=== PATIENT | male | born 1960 | race Caucasian/White ===

== ENCOUNTER 2017-07-05 09:19 | Inpatient (IN) | payer OTHER ==
--- NOTE | 2017-07-05 12:06 | HP ---
CIWA Score - CIWA Score Nausea/Vomitin Muscle Tremors: 3 Anxiety: 3 Agitation: 3 Paroxysmal Sweats: 1-Minimal Palms Moist Orientation: 0-Oriented Tacttile Disturbances: 2-Mild Itch/Numbness/Burn Auditory Disturbances: 0-None Visual Disturbances: 0-None Headache: 0-None Present CIWA-Ar Total Score: 15 Admission ROS S - HPI Chief Complaint: "I want detox from Alcohol" Allergies/Adverse Reactions: Allergies Allergy/AdvReac Type Severity Reaction Status Date / Time No Known Allergies Allergy Verified 07/05/17 09:55 History of Present Illness: 57 y/o male with a protracted hx of alcohol abuse presents requesting detox. This is pt's first visit to [facility] but had detox at [facility] in 2014. Hx of HTN, DM, High cholesterol, GERD. Pt was at [facility] ED last night for intoxication from where he was brought here today by Adri. Denies prior or current SI/HI. Exam Limitations: Clinical Condition, Intoxication (appears intoxicated, A & O x 3 and had steady gait) - Ebola screening Have you traveled outside of the country in the last 21 days: No (N) Have you had contact with anyone from an Ebola affected area: No Have you been sick,other than usual withdrawal symptoms: No Do you have a fever: No - Review of Systems EENT: reports: Blurred Vision ("i need glasses") Respiratory: reports: No Symptoms reported Cardiac: reports: No Symptoms Reported GI: reports: Poor Appetite : reports: Other (Erectile dysfunction) Musculoskeletal: reports: No Symptoms Reported Neuro: reports: No Symptoms reported Endocrine: reports: Intolerance to Heat, Unexplained Weight Loss Hematology: reports: Easy Bruising (Gums) Psychiatric: reports: Orientated x3 Other Systems: Reviewed and Negative Patient History - Patient Medical History Hx Anemia: Yes Hx Asthma: No Hx Chronic Obstructive Pulmonary Disease (COPD): No Hx Cancer: No Hx Cardiac Disorders: No Hx Congestive Heart Failure: No Hx Hypertension: Yes (On Norvasc 15mg daily) Hx Hypercholesterolemia: Yes (Simvastatin 5mg at night) Hx Pacemaker: No HX Cerebrovascular Accident: No Hx Seizures: No Hx Dementia: No Hx Diabetes: Yes (On Metformin 500mg daily) Hx Gastrointestinal Disorders: Yes (GERD, On protonix) Hx Liver Disease: No Hx Genitourinary Disorders: No Hx Sexually Transmitted Disorders: No Hx Renal Disease (ESRD): No Hx Thyroid Disease: No Hx Human Immunodeficiency Virus (HIV): No (Last tested 4 years ago) Hx Hepatitis C: No Hx Depression: No Hx Suicide Attempt: No (Denies Current SI) Hx Bipolar Disorder: No Hx Schizophrenia: No - Patient Surgical History Past Surgical History: No Hx Neurologic Surgery: No Hx Cataract Extraction: No Hx Cardiac Surgery: No Hx Lung Surgery: No Hx Breast Surgery: No Hx Breast Biopsy: No Hx Abdominal Surgery: No Hx Appendectomy: No Hx Cholecystectomy: No Hx Genitourinary Surgery: No Hx Section: No Hx Orthopedic Surgery: No Other Surgical History: Oral surgery Anesthesia Reaction: No - PPD History Previous Implant?: Yes Documented Results: Negative w/o proof Implanted On Prior [facility] Admission?: No PPD to be Administered?: Yes - Reproductive History Patient is a Female of Child Bearing Age (11 -55 yrs old): No - Smoking Cessation Smoking history: Never smoked Have you smoked in the past 12 months: No Hx Chewing Tobacco Use: No Initiated information on smoking cessation: No - Substance & Tx. History Hx Alcohol Use: Yes Substance Use Type: Alcohol - Substances Abused Alcohol Route: Oral Frequency: Daily Amount used: liquor- 1 pint, beer- 2, 24oz Age of first use: 12 Date of Last Use: 07/04/17 Family Disease History - Family Disease History Family Disease History: Other: Father (Cardiac;), Mother (Psych hx; Alive), Brother (Seizure ; Alive) Admission Physical Exam BHS - Vital Signs Vital Signs: Vital Signs - 24 hr 07/05/17 09:41 Temperature 220 F H Pulse Rate 82 Respiratory 20 Rate Blood Pressure 152/84 - Physical General Appearance: Yes: Moderate Distress HEENTM: Yes: Within Normal Limits Respiratory: Yes: No Respiratory Distress, No Accessory Muscle Use Neck: Yes: No masses,lesions,Nodules, Trachea in good position Breast: Yes: Breast Exam Deferred Cardiology: Yes: Regular Rate Abdominal: Yes: Non Tender, Distended Back: Yes: Normal Inspection Musculoskeletal: Yes: full range of Motion, Gait Steady Extremities: Yes: Within Normal Limits Neurological: Yes: Alert, Motor Strength 5/5 Integumentary: Yes: Normal Color Lymphatic: Yes: Within Normal Limits - Diagnostic (1) Alcohol dependence with uncomplicated intoxication Current Visit: Yes Status: Acute (2) HTN (hypertension) Current Visit: Yes Status: Chronic (3) Hypercholesteremia Current Visit: Yes Status: Chronic (4) Substance induced mood disorder Current Visit: Yes Status: Suspected (5) DM type 2 (diabetes mellitus, type 2) Current Visit: Yes Status: Suspected Cleared for Admission [facility] - Detox or Rehab [facility] Level of Care: Medically Managed Detox Regimen/Protocol: Librium S Breath Alcohol Content Breath Alcohol Content: 0.134 Urine Drug Screen - Results Drug Screen Negative: Yes
[2017-07-05] MEDS ORDERED: IBUPROFEN 400 MG TABLET (FP) PO PRN (12:43)
[2017-07-05] MEDS ORDERED: hydrOXYzine PAMOATE 50 MG CAPSULE (FP) PO PRN (12:43)
[2017-07-05] MEDS ORDERED: MAGNESIUM CITRATE 300 ML BOTTLE PO PRN (12:43)
[2017-07-05] MEDS ORDERED: P-EPHED 60MG/TRIPROLIDI 2.5MG TABLET PO PRN (12:43)
[2017-07-05] MEDS ORDERED: ACETAMINOPHEN 325 MG TABLET (FP) PO PRN (12:43)
[2017-07-05] MEDS ORDERED: MENTHOL/PHENOL 1 EACH UD MM PRN (12:43)
[2017-07-05] MEDS ORDERED: MAGNESIUM HYDROX 2400MG/30ML ORAL SUSPENSION 30 ML CUP PO PRN (12:43)
[2017-07-05] MEDS ORDERED: guaiFENesin/D-METHORPHAN HB 10 ML UNIT-DOSE CUPS PO PRN (12:43)
[2017-07-05] MEDS ORDERED: chlordiazePOXIDE HCL 25 MG CAPSULE PO PRN (12:43)
[2017-07-05] MEDS ORDERED: MAG HYDROX/AL HYDROX/SIMETH 30 ML UNIT-DOSE CUP PO PRN (12:43)
[2017-07-05] MEDS ORDERED: LOPERAMIDE HCL 2 MG CAPSULE PO PRN (12:43)
[2017-07-05] MEDS ORDERED: amLODIPine BESYLATE 10 MG TABLET (FP) PO SCH ×2 (13:00→14:40)
[2017-07-05] MEDS: PANTOPRAZOLE 40 MG TABLET (FP) PO SCH (14:27)
[2017-07-05] MEDS: chlordiazePOXIDE HCL 25 MG CAPSULE PO SCH ×3 (14:28→22:05)
--- NOTE | 2017-07-05 14:34 | EKG ---
Test Reason : Blood Pressure : / mmHG Vent. Rate : 088 BPM Atrial Rate : 088 BPM P-R Int : 168 ms QRS Dur : 112 ms QT Int : 370 ms P-R-T Axes : 059 070 066 degrees QTc Int : 447 ms NORMAL SINUS RHYTHM POSSIBLE LEFT ATRIAL ENLARGEMENT BORDERLINE ECG NO PREVIOUS ECGS AVAILABLE Confirmed by MD Yonatan, Jim ([id number]) on 07/05/2017 2:34:18 PM Referred By: Confirmed By:Jim Tam MD
[2017-07-05] MEDS ORDERED: amLODIPine BESYLATE 5 MG TABLET (FP) PO ONE (14:47)
[2017-07-05 15:05] VITALS: BMI 37.8
[2017-07-05 21:11] LABS: URINE APPEARANCE CLEAR; URINE BILIRUBIN NEGATIVE (<2.0 mg/dL); URINE COLOR YELLOW; URINE GLUCOSE (UA) NEGATIVE (NEGATIVE); URINE KETONE NEGATIVE (NEGATIVE); URINE LEUK ESTERASE NEGATIVE (NEGATIVE); URINE NITRITE NEGATIVE (NEGATIVE); URINE PROTEIN NEGATIVE (NEGATIVE); URINE UROBILINOGEN NEGATIVE mg/dL (0.2-1.0)
[2017-07-05] MEDS ORDERED: MELATONIN 5 MG TABLETS PO PRN (22:00)
[2017-07-05] MEDS: THIAMINE HCL 100 MG TABLET (FP) PO SCH (22:05)
[2017-07-05] MEDS: ATORVASTATIN CA 10 MG TABLET (FP) PO SCH (22:06)
[2017-07-06] MEDS: chlordiazePOXIDE HCL 25 MG CAPSULE PO SCH ×4 (05:41→22:06)
[2017-07-06] MEDS: metFORMIN HCL 500 MG TABLET (FP) PO SCH (06:12)
[2017-07-06 09:43] LABS: HEMATOCRIT 39.6 % (35.4-49); HEMOGLOBIN 13.8 GM/dL (11.7-16.9); MCH 35.6 pg (25.7-33.7); MCHC 34.8 g/dl (32.0-35.9); MEAN CELL VOLUME 102.3 fl (80-96); MEAN PLT VOLUME 9.5 fl (7.5-11.1); PLATELET COUNT 134 K/MM3 (134-434); RBC 3.87 M/mm3 (4.00-5.60); RDW 14.9 % (11.9-15.9); WHITE BLOOD COUNT 6.8 K/mm3 (4.0-10.0)
[2017-07-06 09:52] LABS: CHLORIDE 101 mmol/L (98-107); POTASSIUM 3.7 mmol/L (3.5-5.1); SODIUM 136 mmol/L (136-145)
[2017-07-06] MEDS ORDERED: amLODIPine BESYLATE 10 MG TABLET (FP) PO SCH (10:00)
[2017-07-06 10:02] LABS: ALBUMIN 3.6 g/dl (3.4-5.0); ALK PHOS 103 U/L (45-117); ANION GAP 4 (8-16); BILIRUBIN,TOTAL 2.2 mg/dL (0.2-1.0); BLOOD UREA NITROGEN 10 mg/dL (7-18); CALCIUM 8.3 mg/dL (8.5-10.1); CO2 31 mmol/L (21-32); CREATININE 0.8 mg/dL (0.7-1.3); GLUCOSE,RANDOM 91 mg/dL (74-106); SGOT/AST 37 U/L (15-37); SGPT/ALT 28 U/L (12-78)
[2017-07-06] MEDS: PRENATAL VITAMINS W/ FOLIC ACID TABLET (FP) PO SCH (10:09)
[2017-07-06] MEDS: PANTOPRAZOLE 40 MG TABLET (FP) PO SCH (10:09)
--- NOTE | 2017-07-06 11:27 | PN ---
S CIWA - CIWA Score Nausea/Vomitin-Mild Nausea/No Vomiting Muscle Tremors: 4-Moderate,w/Arms Extend Anxiety: 3 Agitation: 3 Paroxysmal Sweats: 1-Minimal Palms Moist Orientation: 0-Oriented Tacttile Disturbances: 1-Very Mild Itch/Numbness Auditory Disturbances: 0-None Visual Disturbances: 0-None Headache: 0-None Present CIWA-Ar Total Score: 13 BHS Progress Note (SOAP) Subjective: tremor sweat anxiety restlessness trouble sleep at night Objective: 07/06/17 11:28 Vital Signs Temperature 99.7 F H 07/06/17 10:18 Pulse Rate 91 H 07/06/17 10:18 Respiratory Rate 18 07/06/17 10:18 Blood Pressure 123/75 07/06/17 10:18 O2 Sat by Pulse Oximetry (%) Laboratory Last Values WBC 6.8 K/mm3 (4.0-10.0) 07/06/17 07:00 RBC 3.87 M/mm3 (4.00-5.60) L 07/06/17 07:00 Hgb 13.8 GM/dL (11.7-16.9) 07/06/17 07:00 Hct 39.6 % (35.4-49) 07/06/17 07:00 MCV 102.3 fl (80-96) H 07/06/17 07:00 MCH 35.6 pg (25.7-33.7) H 07/06/17 07:00 MCHC 34.8 g/dl (32.0-35.9) 07/06/17 07:00 RDW 14.9 % (11.9-15.9) 07/06/17 07:00 Plt Count 134 K/MM3 (134-434) 07/06/17 07:00 MPV 9.5 fl (7.5-11.1) 07/06/17 07:00 Sodium 136 mmol/L (136-145) 07/06/17 07:00 Potassium 3.7 mmol/L (3.5-5.1) 07/06/17 07:00 Chloride 101 mmol/L (98-107) 07/06/17 07:00 Carbon Dioxide 31 mmol/L (21-32) 07/06/17 07:00 Anion Gap 4 (8-16) L 07/06/17 07:00 BUN 10 mg/dL (7-18) 07/06/17 07:00 Creatinine 0.8 mg/dL (0.7-1.3) 07/06/17 07:00 Creat Clearance w eGFR > 60 (>60) 07/06/17 07:00 POC Glucometer 98 UNITS (80-120) 07/06/17 05:41 Random Glucose 91 mg/dL (74-106) 07/06/17 07:00 Calcium 8.3 mg/dL (8.5-10.1) L 07/06/17 07:00 Total Bilirubin 2.2 mg/dL (0.2-1.0) H 07/06/17 07:00 AST 37 U/L (15-37) 07/06/17 07:00 ALT 28 U/L (12-78) 07/06/17 07:00 Alkaline Phosphatase 103 U/L (45-117) 07/06/17 07:00 Total Protein 8.0 g/dl (6.4-8.2) 07/06/17 07:00 Albumin 3.6 g/dl (3.4-5.0) 07/06/17 07:00 Urine Color Yellow 07/05/17 18:37 Urine Appearance Clear 07/05/17 18:37 Urine pH 5.0 (5.0-8.0) 07/05/17 18:37 Ur Specific [place] 1.015 (1.001-1.035) 07/05/17 18:37 Urine Protein Negative (NEGATIVE) 07/05/17 18:37 Urine Glucose (UA) Negative (NEGATIVE) 07/05/17 18:37 Urine Ketones Negative (NEGATIVE) 07/05/17 18:37 Urine Blood Negative (NEGATIVE) 07/05/17 18:37 Urine Nitrite Negative (NEGATIVE) 07/05/17 18:37 Urine Bilirubin Negative (<2.0 mg/dL) 07/05/17 18:37 Urine Urobilinogen Negative mg/dL (0.2-1.0) 07/05/17 18:37 Ur Leukocyte Esterase Negative (NEGATIVE) 07/05/17 18:37 RPR Titer Nonreactive (NONREACTIVE) 07/06/17 07:00 HIV 1&2 Antibody Screen Negative 07/06/17 07:00 HIV P24 Antigen Negative 07/06/17 07:00 lab noted Assessment: 07/06/17 11:28 withdrawal sx Plan: continue detox
--- NOTE | 2017-07-06 13:44 | CONSULT ---
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 Substance Abuse History: Confirmed by patient in this interview.Details in current [facility] report : Smoking history: Never smoked. Have you smoked in the past 12 months: No. Hx Chewing Tobacco Use: No. Initiated information on smoking cessation: No. - Substance & Tx. History. Hx Alcohol Use: Yes. Substance Use Type: Alcohol. - Substances Abused. Alcohol. Route: Oral. Frequency: Daily. Amount used: liquor- 1 pint, beer- 2, 24oz. Age of first use : 12. Date of Last Use: 07/04/17 Medical History: GERD,dyslipidemia,erectile dysfunction (ED),hypertension, diabetes mellitus and history of cardiac stent placement (self-report). Psychiatric History: Patient denies. Physical/Sexual Abuse/Trauma History: Patient denies. Additional Comment: Drug Screen is negative. Mental Status Exam - Mental Status Exam Alert and Oriented to: Time, Place, Person Cognitive Function: Good Patient Appearance: Well Groomed (but unshaven ; short stature,overweight) Mood: Hopeful, Euthymic Affect: Appropriate, Normal Range Patient Behavior: Appropriate, Cooperative Speech Pattern: Clear, Appropriate (fluent in burundian) Voice Loudness: Normal Thought Process: Intact, Goal Oriented Thought Disorder: Not Present Hallucinations: Denies Suicidal Ideation: Denies Homicidal Ideation: Denies Insight/Judgement: Fair Sleep: Poorly, Difficulty falling asleep Appetite: Good Muscle strength/Tone: Normal Gait/Station: Normal Psychiatric Findings - Problem List ([place] 1, 2,3) (1) Alcohol dependence with uncomplicated intoxication Current Visit: Yes Status: Acute (2) Nicotine dependence Current Visit: Yes Status: Acute (3) Insomnia Current Visit: Yes Status: Acute - Initial Treatment Plan Initial Treatment Plan: Psychoeducation.Sleep hygiene.Detoxification in progress.Ambien 5 mg po hs prn (patient's request).Patient is made aware of risk of parasomnias.Agrees with careplan.Observation.
[2017-07-06] MEDS: THIAMINE HCL 100 MG TABLET (FP) PO SCH (22:06)
[2017-07-06] MEDS: ATORVASTATIN CA 10 MG TABLET (FP) PO SCH (22:06)
[2017-07-07] MEDS: chlordiazePOXIDE HCL 25 MG CAPSULE PO SCH (05:36)
[2017-07-07] MEDS: metFORMIN HCL 500 MG TABLET (FP) PO SCH (06:02)
--- NOTE | 2017-07-07 09:53 | PN ---
S CIWA - CIWA Score Nausea/Vomitin-Mild Nausea/No Vomiting Muscle Tremors: 4-Moderate,w/Arms Extend Anxiety: 3 Agitation: 3 Paroxysmal Sweats: 1-Minimal Palms Moist Orientation: 0-Oriented Tacttile Disturbances: 0-None Auditory Disturbances: 0-None Visual Disturbances: 0-None Headache: 0-None Present CIWA-Ar Total Score: 12 BHS Progress Note (SOAP) Subjective: sweat tremor anxiety restlessness Objective: 07/07/17 09:59 Vital Signs Temperature 97.5 F L 07/07/17 09:27 Pulse Rate 81 07/07/17 09:27 Respiratory Rate 18 07/07/17 09:27 Blood Pressure 135/79 07/07/17 09:27 O2 Sat by Pulse Oximetry (%) Laboratory Last Values WBC 6.8 K/mm3 (4.0-10.0) 07/06/17 07:00 RBC 3.87 M/mm3 (4.00-5.60) L 07/06/17 07:00 Hgb 13.8 GM/dL (11.7-16.9) 07/06/17 07:00 Hct 39.6 % (35.4-49) 07/06/17 07:00 MCV 102.3 fl (80-96) H 07/06/17 07:00 MCH 35.6 pg (25.7-33.7) H 07/06/17 07:00 MCHC 34.8 g/dl (32.0-35.9) 07/06/17 07:00 RDW 14.9 % (11.9-15.9) 07/06/17 07:00 Plt Count 134 K/MM3 (134-434) 07/06/17 07:00 MPV 9.5 fl (7.5-11.1) 07/06/17 07:00 Sodium 136 mmol/L (136-145) 07/06/17 07:00 Potassium 3.7 mmol/L (3.5-5.1) 07/06/17 07:00 Chloride 101 mmol/L (98-107) 07/06/17 07:00 Carbon Dioxide 31 mmol/L (21-32) 07/06/17 07:00 Anion Gap 4 (8-16) L 07/06/17 07:00 BUN 10 mg/dL (7-18) 07/06/17 07:00 Creatinine 0.8 mg/dL (0.7-1.3) 07/06/17 07:00 Creat Clearance w eGFR > 60 (>60) 07/06/17 07:00 POC Glucometer 124 UNITS (80-120) 07/07/17 05:35 Random Glucose 91 mg/dL (74-106) 07/06/17 07:00 Calcium 8.3 mg/dL (8.5-10.1) L 07/06/17 07:00 Total Bilirubin 2.2 mg/dL (0.2-1.0) H 07/06/17 07:00 AST 37 U/L (15-37) 07/06/17 07:00 ALT 28 U/L (12-78) 07/06/17 07:00 Alkaline Phosphatase 103 U/L (45-117) 07/06/17 07:00 Total Protein 8.0 g/dl (6.4-8.2) 07/06/17 07:00 Albumin 3.6 g/dl (3.4-5.0) 07/06/17 07:00 Urine Color Yellow 07/05/17 18:37 Urine Appearance Clear 07/05/17 18:37 Urine pH 5.0 (5.0-8.0) 07/05/17 18:37 Ur Specific [place] 1.015 (1.001-1.035) 07/05/17 18:37 Urine Protein Negative (NEGATIVE) 07/05/17 18:37 Urine Glucose (UA) Negative (NEGATIVE) 07/05/17 18:37 Urine Ketones Negative (NEGATIVE) 07/05/17 18:37 Urine Blood Negative (NEGATIVE) 07/05/17 18:37 Urine Nitrite Negative (NEGATIVE) 07/05/17 18:37 Urine Bilirubin Negative (<2.0 mg/dL) 07/05/17 18:37 Urine Urobilinogen Negative mg/dL (0.2-1.0) 07/05/17 18:37 Ur Leukocyte Esterase Negative (NEGATIVE) 07/05/17 18:37 RPR Titer Nonreactive (NONREACTIVE) 07/06/17 07:00 HIV 1&2 Antibody Screen Negative 07/06/17 07:00 HIV P24 Antigen Negative 07/06/17 07:00 lab noted Assessment: 07/07/17 10:00 withdrawal sx Plan: continue detox
[2017-07-07] MEDS: amLODIPine BESYLATE 5 MG TABLET (FP) PO SCH (10:31)
[2017-07-07] MEDS: PANTOPRAZOLE 40 MG TABLET (FP) PO SCH (10:31)
[2017-07-07] MEDS: chlordiazePOXIDE 5 MG CAPSULE PO SCH ×3 (10:31→22:13)
[2017-07-07] MEDS: PRENATAL VITAMINS W/ FOLIC ACID TABLET (FP) PO SCH (10:31)
[2017-07-07] MEDS: THIAMINE HCL 100 MG TABLET (FP) PO SCH (22:13)
[2017-07-07] MEDS: ATORVASTATIN CA 10 MG TABLET (FP) PO SCH (22:14)
[2017-07-07] MEDS: ZOLPIDEM TARTRATE 5 MG TABLET PO PRN (22:14)
[2017-07-08] MEDS: chlordiazePOXIDE 5 MG CAPSULE PO SCH (05:43)
[2017-07-08] MEDS: metFORMIN HCL 500 MG TABLET (FP) PO SCH (06:23)
[2017-07-08] MEDS: PRENATAL VITAMINS W/ FOLIC ACID TABLET (FP) PO SCH (10:08)
[2017-07-08] MEDS: PANTOPRAZOLE 40 MG TABLET (FP) PO SCH (10:08)
[2017-07-08] MEDS: amLODIPine BESYLATE 5 MG TABLET (FP) PO SCH (10:08)
[2017-07-08] MEDS: chlordiazePOXIDE HCL 10 MG CAPSULE PO SCH ×3 (10:08→22:55)
--- NOTE | 2017-07-08 11:56 | PN ---
BHS Progress Note (SOAP) Subjective: feeling better less sweat no tremor Objective: 07/08/17 11:55 Vital Signs Temperature 97.7 F 07/08/17 09:09 Pulse Rate 85 07/08/17 09:09 Respiratory Rate 18 07/08/17 09:09 Blood Pressure 106/50 07/08/17 09:09 O2 Sat by Pulse Oximetry (%) Laboratory Last Values WBC 6.8 K/mm3 (4.0-10.0) 07/06/17 07:00 RBC 3.87 M/mm3 (4.00-5.60) L 07/06/17 07:00 Hgb 13.8 GM/dL (11.7-16.9) 07/06/17 07:00 Hct 39.6 % (35.4-49) 07/06/17 07:00 MCV 102.3 fl (80-96) H 07/06/17 07:00 MCH 35.6 pg (25.7-33.7) H 07/06/17 07:00 MCHC 34.8 g/dl (32.0-35.9) 07/06/17 07:00 RDW 14.9 % (11.9-15.9) 07/06/17 07:00 Plt Count 134 K/MM3 (134-434) 07/06/17 07:00 MPV 9.5 fl (7.5-11.1) 07/06/17 07:00 Sodium 136 mmol/L (136-145) 07/06/17 07:00 Potassium 3.7 mmol/L (3.5-5.1) 07/06/17 07:00 Chloride 101 mmol/L (98-107) 07/06/17 07:00 Carbon Dioxide 31 mmol/L (21-32) 07/06/17 07:00 Anion Gap 4 (8-16) L 07/06/17 07:00 BUN 10 mg/dL (7-18) 07/06/17 07:00 Creatinine 0.8 mg/dL (0.7-1.3) 07/06/17 07:00 Creat Clearance w eGFR > 60 (>60) 07/06/17 07:00 POC Glucometer 143 UNITS (80-120) 07/08/17 05:42 Random Glucose 91 mg/dL (74-106) 07/06/17 07:00 Calcium 8.3 mg/dL (8.5-10.1) L 07/06/17 07:00 Total Bilirubin 2.2 mg/dL (0.2-1.0) H 07/06/17 07:00 AST 37 U/L (15-37) 07/06/17 07:00 ALT 28 U/L (12-78) 07/06/17 07:00 Alkaline Phosphatase 103 U/L (45-117) 07/06/17 07:00 Total Protein 8.0 g/dl (6.4-8.2) 07/06/17 07:00 Albumin 3.6 g/dl (3.4-5.0) 07/06/17 07:00 Urine Color Yellow 07/05/17 18:37 Urine Appearance Clear 07/05/17 18:37 Urine pH 5.0 (5.0-8.0) 07/05/17 18:37 Ur Specific [place] 1.015 (1.001-1.035) 07/05/17 18:37 Urine Protein Negative (NEGATIVE) 07/05/17 18:37 Urine Glucose (UA) Negative (NEGATIVE) 07/05/17 18:37 Urine Ketones Negative (NEGATIVE) 07/05/17 18:37 Urine Blood Negative (NEGATIVE) 07/05/17 18:37 Urine Nitrite Negative (NEGATIVE) 07/05/17 18:37 Urine Bilirubin Negative (<2.0 mg/dL) 07/05/17 18:37 Urine Urobilinogen Negative mg/dL (0.2-1.0) 07/05/17 18:37 Ur Leukocyte Esterase Negative (NEGATIVE) 07/05/17 18:37 RPR Titer Nonreactive (NONREACTIVE) 07/06/17 07:00 HIV 1&2 Antibody Screen Negative 07/06/17 07:00 HIV P24 Antigen Negative 07/06/17 07:00 lab noted Assessment: 07/08/17 11:55 mild withdrawal sx Plan: medically supervised detox
[2017-07-08] MEDS: ZOLPIDEM TARTRATE 5 MG TABLET PO PRN (22:55)
[2017-07-08] MEDS: ATORVASTATIN CA 10 MG TABLET (FP) PO SCH (22:55)
[2017-07-08] MEDS: THIAMINE HCL 100 MG TABLET (FP) PO SCH (22:55)
[2017-07-09] MEDS: chlordiazePOXIDE HCL 10 MG CAPSULE PO SCH (05:33)
[2017-07-09] MEDS: metFORMIN HCL 500 MG TABLET (FP) PO SCH (06:08)
[2017-07-09 09:21] VITALS: BP 148/88; PULSE 94; TEMP 97.5
--- NOTE | 2017-07-09 09:22 | DS ---
[facility] Detox Discharge Summary Admission Date: 07/05/17 Discharge Date: 07/09/17 - History Present History: Alcohol Dependence Additional Comments: 57 years old male admitted 07/05/17 for alcohol withdrawal sx completed alcohol detox regimen tolerated well denies alcohol withdrawal sx alert orientednx 3 no acute distress,agrees to follow up with primary care provider for medical and addiction aftercare encourage community self help management meetings - Physical Exam Results Vital Signs: Vital Signs Temperature 97.7 F 07/09/17 06:27 Pulse Rate 84 07/09/17 06:27 Respiratory Rate 18 07/09/17 06:27 Blood Pressure 118/77 07/09/17 06:27 O2 Sat by Pulse Oximetry (%) Pertinent Admission Physical Exam Findings: Vital Signs Temperature 97.5 F L 07/09/17 09:16 Pulse Rate 94 H 07/09/17 09:16 Respiratory Rate 18 07/09/17 09:16 Blood Pressure 148/88 07/09/17 09:16 O2 Sat by Pulse Oximetry (%) Laboratory Last Values WBC 6.8 K/mm3 (4.0-10.0) 07/06/17 07:00 RBC 3.87 M/mm3 (4.00-5.60) L 07/06/17 07:00 Hgb 13.8 GM/dL (11.7-16.9) 07/06/17 07:00 Hct 39.6 % (35.4-49) 07/06/17 07:00 MCV 102.3 fl (80-96) H 07/06/17 07:00 MCH 35.6 pg (25.7-33.7) H 07/06/17 07:00 MCHC 34.8 g/dl (32.0-35.9) 07/06/17 07:00 RDW 14.9 % (11.9-15.9) 07/06/17 07:00 Plt Count 134 K/MM3 (134-434) 07/06/17 07:00 MPV 9.5 fl (7.5-11.1) 07/06/17 07:00 Sodium 136 mmol/L (136-145) 07/06/17 07:00 Potassium 3.7 mmol/L (3.5-5.1) 07/06/17 07:00 Chloride 101 mmol/L (98-107) 07/06/17 07:00 Carbon Dioxide 31 mmol/L (21-32) 07/06/17 07:00 Anion Gap 4 (8-16) L 07/06/17 07:00 BUN 10 mg/dL (7-18) 07/06/17 07:00 Creatinine 0.8 mg/dL (0.7-1.3) 07/06/17 07:00 Creat Clearance w eGFR > 60 (>60) 07/06/17 07:00 POC Glucometer 161 UNITS (80-120) 07/09/17 05:32 Random Glucose 91 mg/dL (74-106) 07/06/17 07:00 Calcium 8.3 mg/dL (8.5-10.1) L 07/06/17 07:00 Total Bilirubin 2.2 mg/dL (0.2-1.0) H 07/06/17 07:00 AST 37 U/L (15-37) 07/06/17 07:00 ALT 28 U/L (12-78) 07/06/17 07:00 Alkaline Phosphatase 103 U/L (45-117) 07/06/17 07:00 Total Protein 8.0 g/dl (6.4-8.2) 07/06/17 07:00 Albumin 3.6 g/dl (3.4-5.0) 07/06/17 07:00 Urine Color Yellow 07/05/17 18:37 Urine Appearance Clear 07/05/17 18:37 Urine pH 5.0 (5.0-8.0) 07/05/17 18:37 Ur Specific [place] 1.015 (1.001-1.035) 07/05/17 18:37 Urine Protein Negative (NEGATIVE) 07/05/17 18:37 Urine Glucose (UA) Negative (NEGATIVE) 07/05/17 18:37 Urine Ketones Negative (NEGATIVE) 07/05/17 18:37 Urine Blood Negative (NEGATIVE) 07/05/17 18:37 Urine Nitrite Negative (NEGATIVE) 07/05/17 18:37 Urine Bilirubin Negative (<2.0 mg/dL) 07/05/17 18:37 Urine Urobilinogen Negative mg/dL (0.2-1.0) 07/05/17 18:37 Ur Leukocyte Esterase Negative (NEGATIVE) 07/05/17 18:37 RPR Titer Nonreactive (NONREACTIVE) 07/06/17 07:00 HIV 1&2 Antibody Screen Negative 07/06/17 07:00 HIV P24 Antigen Negative 07/06/17 07:00 lab noted - Treatment Hospital Course: Detox Protocol Followed, Detoxed Safely, Responded well, Discharged Condition Good, Rehab Referral Accepted Patient has Accepted a Rehab Referral to: community self help groups - Medication Discharge Medications: Ambulatory Orders Pantoprazole Sodium [Protonix -] 40 mg PO DAILY 07/05/17 Amlodipine Besylate [Norvasc -] 15 mg PO DAILY #30 tablet 07/08/17 Simvastatin [Zocor -] 10 mg PO HS #30 tablet 07/08/17 Metformin HCl 500 mg PO ACBK #30 tablet 07/09/17 - Diagnosis (1) Alcohol dependence with uncomplicated intoxication Current Visit: Yes Status: Acute (2) HTN (hypertension) Current Visit: Yes Status: Chronic Qualifiers: Hypertension type: essential hypertension Qualified Code(s): I10 - Essential (primary) hypertension (3) Hypercholesteremia Current Visit: Yes Status: Chronic (4) DM type 2 (diabetes mellitus, type 2) Current Visit: Yes Status: Suspected Qualifiers: Diabetes mellitus intermediate frame tender insulin use: without jail use Diabetes mellitus complication status: without complication Qualified Code(s): E11.9 - Type 2 diabetes mellitus without complications - AMA Did Patient Leave Against Medical Advice: No
[2017-07-09] MEDS: PRENATAL VITAMINS W/ FOLIC ACID TABLET (FP) PO SCH (09:35)
[2017-07-09] MEDS: PANTOPRAZOLE 40 MG TABLET (FP) PO SCH (09:35)
[2017-07-09] MEDS: amLODIPine BESYLATE 5 MG TABLET (FP) PO SCH (09:35)
== END 2017-07-09 09:50 | disposition home or self-care (01) | DRG 897 ==
LOC: YASAS 09:19 → Y6N 11:33
PROVIDERS: ADMIT Internal Medicine; ATTEND Internal Medicine
PROC: HZ2ZZZZ Detoxification Services for Substance Abuse Treatment (ICD-10-PCS; principal; 2017-07-05)
DX: F10.220 Alcohol dependence with intoxication, uncomplicated (principal); F17.210 Nicotine dependence, cigarettes, uncomplicated; F19.24 Other psychoactive substance dependence with psychoactive substance-induced mood disorder; G47.00 Insomnia, unspecified; I10 Essential (primary) hypertension; E11.9 Type 2 diabetes mellitus without complications; Z79.84 Long term (current) use of oral hypoglycemic drugs; E78.00 Pure hypercholesterolemia, unspecified; D64.9 Anemia, unspecified
CPT/HCPCS: 36415; 80053; 81003; 82962; 85027; 86593; 87389; 93005; 93010

== ENCOUNTER 2018-09-20 09:24 | Inpatient (IN) | payer OTHER ==
[2018-09-20 10:06] VITALS: BMI 33.3
--- NOTE | 2018-09-20 10:47 | HP ---
CIWA Score Nausea/Vomitin Muscle Tremors: 2 Anxiety: 1-Mildly Anxious Agitation: 1-Slight > Activity Paroxysmal Sweats: 3 Orientation: 0-Oriented Tacttile Disturbances: 2-Mild Itch/Numbness/Burn Auditory Disturbances: 0-None Visual Disturbances: 0-None Headache: 1-Very Mild CIWA-Ar Total Score: 12 - Admission Criteria OASAS Guidelines: Admission for Medically Managed Detox: Requires at least one of the followin. CIWA greater than 12 2. Seizures within the past 24 hours 3. Delirium tremens within the past 24 hours 4. Hallucinations within the past 24 hours 5. Acute intervention needed for co occurring medical disorder 6. Acute intervention needed for co occurring psychiatric disorder 7. Severe withdrawal that cannot be handled at a lower level of care (continued vomiting, continued diarrhea, abnormal vital signs) requiring intravenous medication and/or fluids 8. Patient presents the following: CIWA greater than 12 Admission Criteria Met: Admission criteria met Admission ROS [facility] Chief Complaint: I was sent by [facility] Ed for alcohol detox. Secondary to longstanding alcohol dependency. Allergies/Adverse Reactions: Allergies Allergy/AdvReac Type Severity Reaction Status Date / Time No Known Allergies Allergy Verified 09/20/18 10:07 History of Present Illness: 58 y/o m pt with a h/o alcohol abuse since age 12 . Pt began using alchol daily at about age 28. Pt was seen yesterday at [facility] ED because of the heat abdominal pain and alcohol intoxication. While in ED pt recieved IV fluids and librium. The pt was given a referral from ED for alcohol detox program. Exam Limitations: No Limitations - Ebola screening Have you traveled outside of the country in the last 21 days: No Have you had contact with anyone from an Ebola affected area: No Do you have a fever: No - Review of Systems Constitutional: Changes in sleep, Unexplained wgt Loss EENT: reports: Dental Problems (multiple missing teeth in poor repair) Respiratory: reports: No Symptoms reported Cardiac: reports: No Symptoms Reported GI: reports: Indigestion : reports: No Symptoms Reported Musculoskeletal: reports: Back Pain Integumentary: reports: No Symptoms Reported Neuro: reports: Headache, Tremors, Dizziness Endocrine: reports: No Symptoms Reported Psychiatric: reports: No Sypmtoms Reported Other Systems: Reviewed and Negative Patient History - Patient Medical History Hx Anemia: Yes Hx Asthma: Yes (h/o asthma , last attack 1974 while excercising) Hx Chronic Obstructive Pulmonary Disease (COPD): No Hx Cancer: No Hx Cardiac Disorders: No Hx Congestive Heart Failure: No Hx Hypertension: Yes (On Norvasc 5mg daily) Hx Hypercholesterolemia: Yes (Simvastatin 10mg at night) Hx Pacemaker: No HX Cerebrovascular Accident: No Hx Seizures: No Hx Dementia: No Hx Diabetes: Yes (On Metformin 500mg bid, ) Hx Gastrointestinal Disorders: Yes (protonix) Hx Liver Disease: No Hx Genitourinary Disorders: No Hx Sexually Transmitted Disorders: No Hx Renal Disease (ESRD): No Hx Thyroid Disease: No Hx Human Immunodeficiency Virus (HIV): No (Last tested 4 years ago) Hx Hepatitis C: No Hx Depression: No Hx Suicide Attempt: No (Denies Current SI) Hx Bipolar Disorder: No Hx Schizophrenia: No - Patient Surgical History Past Surgical History: No Hx Neurologic Surgery: No Hx Cataract Extraction: No Hx Cardiac Surgery: No Hx Lung Surgery: No Hx Breast Surgery: No Hx Breast Biopsy: No Hx Abdominal Surgery: No Hx Appendectomy: No Hx Cholecystectomy: No Hx Genitourinary Surgery: No Hx Section: No Hx Orthopedic Surgery: No Other Surgical History: Oral surgery Anesthesia Reaction: No - PPD History Previous Implant?: Yes Documented Results: Negative w/proof Implanted On Prior [facility] Admission?: Yes Date: 07/07/17 PPD to be Administered?: No - Reproductive History Patient is a Female of Child Bearing Age (11 -55 yrs old): No - Smoking Cessation Smoking history: Never smoked Have you smoked in the past 12 months: Yes Cigars Per Day: 0 Hx Chewing Tobacco Use: No Initiated information on smoking cessation: Yes 'Breaking Loose' booklet given: 09/20/18 - Substance & Tx. History Hx Alcohol Use: Yes Hx Substance Use: No Substance Use Type: Alcohol Hx Substance Use Treatment: Yes ([facility] ) - Substances abused Alcohol Substance route: Oral Frequency: Daily Amount used: 1 pint of vodka Age of first use: 12 Date of last use: 09/19/18 Family Disease History - Family Disease History Family Disease History: Other: Father (Cardiac;), Mother (Psych hx; Alive), Brother (Seizure ; Alive) Admission Physical Exam [facility] - Vital Signs Vital Signs: Vital Signs - 24 hr 09/20/18 09:49 Temperature 97.1 F L Pulse Rate 71 Respiratory 16 Rate Blood Pressure 145/82 58 y/o m pt aox3 , logorrhea, responses to question long and drawn out. But cooperative with exam - Physical General Appearance: Yes: No Apparent Distress, Disheveled, Obese, Tremorous HEENTM: Yes: EOMI, Hearing grossly Normal, Normocephalic, Normal Voice, FIDENCIO Respiratory: Yes: Chest Non-Tender, Lungs Clear, Normal Breath Sounds, No Respiratory Distress Neck: Yes: No masses,lesions,Nodules, Supple, Trachea in good position Breast: Yes: Within Normal Limits Cardiology: Yes: Regular Rhythm, Regular Rate, S1, S2 Abdominal: Yes: Non Tender, Soft, Increased Bowel Sounds Genitourinary: Yes: Within Normal Limits Back: Yes: Decreased Range of Motion Musculoskeletal: Yes: Back pain Extremities: Yes: Tremors (mild antwon) Neurological: Yes: back shoe worker II-XII NML intact, Fully Oriented, Alert, Motor Strength 5/5 Integumentary: Yes: Moist - Diagnostic (1) Alcohol dependence with uncomplicated intoxication Current Visit: No Status: Chronic (2) HTN (hypertension) Current Visit: No Status: Chronic Qualifiers: Hypertension type: essential hypertension Qualified Code(s): I10 - Essential (primary) hypertension (3) Hypercholesteremia Current Visit: No Status: Chronic (4) DM type 2 (diabetes mellitus, type 2) Current Visit: No Status: Chronic Qualifiers: Diabetes mellitus moth exterminator insulin use: without fpc use Diabetes mellitus complication status: without complication Qualified Code(s): E11.9 - Type 2 diabetes mellitus without complications Cleared for Admission S - Detox or Rehab [facility] Level of Care: Medically Managed Detox Regimen/Protocol: Librium Inpatient Rehab Admission - Rehab Decision to Admit Inpatient rehab admission?: No - Initial Determination Are CD services needed?: Yes Free of communicable disease: Yes Not in need of hospitalization: No - Rehab Admission Criteria Previous failed treatment: No Poor recovery environment: No Comorbidities: Yes Lacks judgement: No Patient is meeting Inpatient Rehab admission criteria:: Yes
[2018-09-20] MEDS ORDERED: chlordiazePOXIDE HCL 10 MG CAPSULE PO PRN (11:26)
[2018-09-20] MEDS ORDERED: ACETAMINOPHEN 325 MG TABLET (FP) PO PRN ×2 (11:28)
[2018-09-20] MEDS ORDERED: IBUPROFEN 400 MG TABLET (FP) PO PRN (11:28)
[2018-09-20] MEDS ORDERED: MENTHOL/PHENOL 1 EACH UD MM PRN (11:28)
[2018-09-20] MEDS ORDERED: BISMUTH SUBSALICYLATE 524 MG/30 ML UD PO PRN (11:28)
[2018-09-20] MEDS ORDERED: MAGNESIUM CITRATE 300 ML BOTTLE PO PRN (11:28)
[2018-09-20] MEDS ORDERED: METHOCARBAMOL 500 MG TABLET PO PRN (11:28)
[2018-09-20] MEDS ORDERED: MAG HYDROX/AL HYDROX/SIMETH 30 ML UNIT-DOSE CUP PO PRN (11:28)
[2018-09-20] MEDS ORDERED: hydrOXYzine PAMOATE 25 MG CAPSULE (FP) PO PRN (11:28)
[2018-09-20] MEDS ORDERED: MAGNESIUM HYDROX 2400MG/30ML ORAL SUSPENSION 30 ML CUP PO PRN (11:28)
[2018-09-20] MEDS ORDERED: chlordiazePOXIDE HCL 25 MG CAPSULE PO ONE (11:55)
[2018-09-20] MEDS: chlordiazePOXIDE HCL 25 MG CAPSULE PO SCH ×2 (12:35→22:13)
[2018-09-20 16:35] LABS: PH,URINE 5.5 (5.0-8.0); URINE APPEARANCE CLEAR; URINE BILIRUBIN NEGATIVE (NEGATIVE); URINE COLOR DK YELLOW; URINE GLUCOSE (UA) NEGATIVE (NEGATIVE); URINE KETONE TRACE (NEGATIVE); URINE LEUK ESTERASE NEGATIVE (NEGATIVE); URINE NITRITE NEGATIVE (NEGATIVE); URINE PROTEIN NEGATIVE (NEGATIVE)
[2018-09-20] MEDS: THIAMINE HCL 100 MG TABLET (FP) PO SCH (22:13)
[2018-09-20] MEDS: MELATONIN 5 MG TABLETS PO PRN (22:13)
[2018-09-21] MEDS: chlordiazePOXIDE HCL 25 MG CAPSULE PO SCH ×3 (05:38→22:13)
[2018-09-21] MEDS: PRENATAL VITAMINS W/ FOLIC ACID TABLET (FP) PO SCH (10:06)
[2018-09-21] MEDS: amLODIPine BESYLATE 5 MG TABLET (FP) PO SCH (10:06)
[2018-09-21 12:14] LABS: ALBUMIN 3.8 g/dl (3.4-5.0); BILIRUBIN,TOTAL 0.9 mg/dL (0.2-1); BLOOD UREA NITROGEN 17.1 mg/dL (7-18); CREATININE 0.9 mg/dL (0.55-1.3); POTASSIUM 3.4 mmol/L (3.5-5.1); TOT PROT 7.7 g/dl (6.4-8.2)
[2018-09-21 12:19] LABS: HEMATOCRIT 37.8 % (35.4-49); HEMOGLOBIN 12.9 GM/dL (11.7-16.9); MCH 35.8 pg (25.7-33.7); MEAN CELL VOLUME 105.2 fl (80-96); MEAN PLT VOLUME 10.3 fl (7.5-11.1); PLATELET COUNT 119 K/MM3 (134-434); RDW 14.5 % (11.9-15.9); WHITE BLOOD COUNT 5.1 K/mm3 (4.0-10.0)
--- NOTE | 2018-09-21 13:43 | EKG ---
Test Reason : Blood Pressure : / mmHG Vent. Rate : 081 BPM Atrial Rate : 081 BPM P-R Int : 176 ms QRS Dur : 098 ms QT Int : 390 ms P-R-T Axes : 061 046 086 degrees QTc Int : 453 ms POOR DATA QUALITY, INTERPRETATION MAY BE ADVERSELY AFFECTED SINUS RHYTHM WITH SINUS ARRHYTHMIA WITH OCCASIONAL PREMATURE VENTRICULAR COMPLEXES NONSPECIFIC T WAVE ABNORMALITY ABNORMAL ECG Confirmed by Shahid Cross MD ([id number]) on 09/21/2018 1:42:49 PM Referred By: Confirmed By:Shahid Cross MD
--- NOTE | 2018-09-21 15:43 | PN ---
[facility] CIWA - CIWA Score Nausea/Vomitin-Mild Nausea/No Vomiting Muscle Tremors: 3 Anxiety: 1-Mildly Anxious Agitation: 2 Paroxysmal Sweats: 1-Minimal Palms Moist Orientation: 1-Uncertain about Date Tacttile Disturbances: 0-None Auditory Disturbances: 0-None Visual Disturbances: 0-None Headache: 0-None Present CIWA-Ar Total Score: 9 S Progress Note (SOAP) Subjective: treor anxiety restlessness Objective: 09/21/18 15:50 Vital Signs Temperature 98.3 F 09/21/18 13:16 Pulse Rate 61 09/21/18 13:16 Respiratory Rate 18 09/21/18 13:16 Blood Pressure 146/72 09/21/18 13:16 O2 Sat by Pulse Oximetry (%) Laboratory Last Values WBC 5.1 K/mm3 (4.0-10.0) 09/21/18 08:00 RBC 3.60 M/mm3 (4.00-5.60) L 09/21/18 08:00 Hgb 12.9 GM/dL (11.7-16.9) 09/21/18 08:00 Hct 37.8 % (35.4-49) 09/21/18 08:00 MCV 105.2 fl (80-96) H 09/21/18 08:00 MCH 35.8 pg (25.7-33.7) H 09/21/18 08:00 MCHC 34.0 g/dl (32.0-35.9) 09/21/18 08:00 RDW 14.5 % (11.9-15.9) 09/21/18 08:00 Plt Count 119 K/MM3 (134-434) L 09/21/18 08:00 MPV 10.3 fl (7.5-11.1) 09/21/18 08:00 Sodium 140 mmol/L (136-145) 09/21/18 08:00 Potassium 3.4 mmol/L (3.5-5.1) L 09/21/18 08:00 Chloride 106 mmol/L (98-107) 09/21/18 08:00 Carbon Dioxide 28 mmol/L (21-32) 09/21/18 08:00 Anion Gap 6 MMOL/L (8-16) L 09/21/18 08:00 BUN 17.1 mg/dL (7-18) 09/21/18 08:00 Creatinine 0.9 mg/dL (0.55-1.3) 09/21/18 08:00 Est GFR (CKD-EPI)AfAm 107.22 09/21/18 08:00 Est GFR (CKD-EPI)NonAf 92.51 09/21/18 08:00 POC Glucometer 139 UNITS (80-120) 09/21/18 06:04 Random Glucose 91 mg/dL (74-106) 09/21/18 08:00 Calcium 9.0 mg/dL (8.5-10.1) 09/21/18 08:00 Total Bilirubin 0.9 mg/dL (0.2-1) 09/21/18 08:00 AST 20 U/L (15-37) 09/21/18 08:00 ALT 20 U/L (13-61) 09/21/18 08:00 Alkaline Phosphatase 83 U/L (45-117) 09/21/18 08:00 Total Protein 7.7 g/dl (6.4-8.2) 09/21/18 08:00 Albumin 3.8 g/dl (3.4-5.0) 09/21/18 08:00 Urine Color Dk yellow 09/20/18 15:00 Urine Appearance Clear 09/20/18 15:00 Urine pH 5.5 (5.0-8.0) 09/20/18 15:00 Ur Specific [place] 1.024 (1.010-1.035) 09/20/18 15:00 Urine Protein Negative (NEGATIVE) 09/20/18 15:00 Urine Glucose (UA) Negative (NEGATIVE) 09/20/18 15:00 Urine Ketones Trace (NEGATIVE) H 09/20/18 15:00 Urine Blood Negative (NEGATIVE) 09/20/18 15:00 Urine Nitrite Negative (NEGATIVE) 09/20/18 15:00 Urine Bilirubin Negative (NEGATIVE) 09/20/18 15:00 Urine Urobilinogen 1.0 mg/dL (0.2-1.0) 09/20/18 15:00 Ur Leukocyte Esterase Negative (NEGATIVE) 09/20/18 15:00 lab noted low K+ repeat K+ Assessment: 09/21/18 15:52 alcohol withdrawal sx Plan: continue alcohol detox
[2018-09-21] MEDS: THIAMINE HCL 100 MG TABLET (FP) PO SCH (22:13)
[2018-09-21] MEDS: MELATONIN 5 MG TABLETS PO PRN (22:13)
[2018-09-22] MEDS: chlordiazePOXIDE 5 MG CAPSULE PO SCH ×3 (06:09→22:16)
[2018-09-22] MEDS: PRENATAL VITAMINS W/ FOLIC ACID TABLET (FP) PO SCH (10:04)
[2018-09-22] MEDS: amLODIPine BESYLATE 5 MG TABLET (FP) PO SCH (10:04)
--- NOTE | 2018-09-22 10:55 | PN ---
S CIWA - CIWA Score Nausea/Vomitin-No Nausea/No Vomiting Muscle Tremors: 2 Anxiety: 2 Agitation: 2 Paroxysmal Sweats: 1-Minimal Palms Moist Orientation: 0-Oriented Tacttile Disturbances: 0-None Auditory Disturbances: 0-None Visual Disturbances: 0-None Headache: 1-Very Mild CIWA-Ar Total Score: 8 S Progress Note (SOAP) Subjective: mild headache otherwise doing well with librium detox protocol Objective: 09/22/18 10:55 Vital Signs Temperature 97.4 F L 09/22/18 09:03 Pulse Rate 62 09/22/18 09:03 Respiratory Rate 18 09/22/18 09:03 Blood Pressure 137/77 09/22/18 09:03 O2 Sat by Pulse Oximetry (%) Laboratory Last Values WBC 5.1 K/mm3 (4.0-10.0) 09/21/18 08:00 RBC 3.60 M/mm3 (4.00-5.60) L 09/21/18 08:00 Hgb 12.9 GM/dL (11.7-16.9) 09/21/18 08:00 Hct 37.8 % (35.4-49) 09/21/18 08:00 MCV 105.2 fl (80-96) H 09/21/18 08:00 MCH 35.8 pg (25.7-33.7) H 09/21/18 08:00 MCHC 34.0 g/dl (32.0-35.9) 09/21/18 08:00 RDW 14.5 % (11.9-15.9) 09/21/18 08:00 Plt Count 119 K/MM3 (134-434) L 09/21/18 08:00 MPV 10.3 fl (7.5-11.1) 09/21/18 08:00 Sodium 140 mmol/L (136-145) 09/21/18 08:00 Potassium 3.4 mmol/L (3.5-5.1) L 09/21/18 08:00 Chloride 106 mmol/L (98-107) 09/21/18 08:00 Carbon Dioxide 28 mmol/L (21-32) 09/21/18 08:00 Anion Gap 6 MMOL/L (8-16) L 09/21/18 08:00 BUN 17.1 mg/dL (7-18) 09/21/18 08:00 Creatinine 0.9 mg/dL (0.55-1.3) 09/21/18 08:00 Est GFR (CKD-EPI)AfAm 107.22 09/21/18 08:00 Est GFR (CKD-EPI)NonAf 92.51 09/21/18 08:00 POC Glucometer 107 UNITS (80-120) 09/22/18 06:17 Random Glucose 91 mg/dL (74-106) 09/21/18 08:00 Calcium 9.0 mg/dL (8.5-10.1) 09/21/18 08:00 Total Bilirubin 0.9 mg/dL (0.2-1) 09/21/18 08:00 AST 20 U/L (15-37) 09/21/18 08:00 ALT 20 U/L (13-61) 09/21/18 08:00 Alkaline Phosphatase 83 U/L (45-117) 09/21/18 08:00 Total Protein 7.7 g/dl (6.4-8.2) 09/21/18 08:00 Albumin 3.8 g/dl (3.4-5.0) 09/21/18 08:00 Urine Color Dk yellow 09/20/18 15:00 Urine Appearance Clear 09/20/18 15:00 Urine pH 5.5 (5.0-8.0) 09/20/18 15:00 Ur Specific [place] 1.024 (1.010-1.035) 09/20/18 15:00 Urine Protein Negative (NEGATIVE) 09/20/18 15:00 Urine Glucose (UA) Negative (NEGATIVE) 09/20/18 15:00 Urine Ketones Trace (NEGATIVE) H 09/20/18 15:00 Urine Blood Negative (NEGATIVE) 09/20/18 15:00 Urine Nitrite Negative (NEGATIVE) 09/20/18 15:00 Urine Bilirubin Negative (NEGATIVE) 09/20/18 15:00 Urine Urobilinogen 1.0 mg/dL (0.2-1.0) 09/20/18 15:00 Ur Leukocyte Esterase Negative (NEGATIVE) 09/20/18 15:00 RPR Titer Nonreactive (NONREACTIVE) 09/21/18 08:00 09/22/18 10:56 lab noted repeat K+ pending Assessment: 09/22/18 10:56 alcohol withdrawal sx Plan: continue alcohol detox
[2018-09-22] MEDS: THIAMINE HCL 100 MG TABLET (FP) PO SCH (22:16)
[2018-09-22] MEDS: MELATONIN 5 MG TABLETS PO PRN (22:17)
[2018-09-23] MEDS ORDERED: chlordiazePOXIDE HCL 10 MG CAPSULE PO PRN
[2018-09-23] MEDS: chlordiazePOXIDE HCL 10 MG CAPSULE PO SCH ×3 (05:31→22:13)
[2018-09-23] MEDS: amLODIPine BESYLATE 5 MG TABLET (FP) PO SCH (10:52)
[2018-09-23] MEDS: PRENATAL VITAMINS W/ FOLIC ACID TABLET (FP) PO SCH (10:52)
--- NOTE | 2018-09-23 16:10 | PN ---
S CIWA - CIWA Score Nausea/Vomitin-No Nausea/No Vomiting Muscle Tremors: 2 Anxiety: 1-Mildly Anxious Agitation: 1-Slight > Activity Paroxysmal Sweats: No Perspiration Orientation: 0-Oriented Tacttile Disturbances: 0-None Auditory Disturbances: 0-None Visual Disturbances: 0-None Headache: 0-None Present CIWA-Ar Total Score: 4 B[facility] Progress Note (SOAP) Subjective: less tremor mild anxiety tolerate food and fluid well Objective: 09/23/18 16:09 Vital Signs Temperature 97.2 F L 09/23/18 13:09 Pulse Rate 57 L 09/23/18 13:09 Respiratory Rate 18 09/23/18 13:09 Blood Pressure 131/77 09/23/18 13:09 O2 Sat by Pulse Oximetry (%) Laboratory Last Values WBC 5.1 K/mm3 (4.0-10.0) 09/21/18 08:00 RBC 3.60 M/mm3 (4.00-5.60) L 09/21/18 08:00 Hgb 12.9 GM/dL (11.7-16.9) 09/21/18 08:00 Hct 37.8 % (35.4-49) 09/21/18 08:00 MCV 105.2 fl (80-96) H 09/21/18 08:00 MCH 35.8 pg (25.7-33.7) H 09/21/18 08:00 MCHC 34.0 g/dl (32.0-35.9) 09/21/18 08:00 RDW 14.5 % (11.9-15.9) 09/21/18 08:00 Plt Count 119 K/MM3 (134-434) L 09/21/18 08:00 MPV 10.3 fl (7.5-11.1) 09/21/18 08:00 Sodium 140 mmol/L (136-145) 09/21/18 08:00 Potassium 3.7 mmol/L (3.5-5.1) 09/22/18 09:54 Chloride 106 mmol/L (98-107) 09/21/18 08:00 Carbon Dioxide 28 mmol/L (21-32) 09/21/18 08:00 Anion Gap 6 MMOL/L (8-16) L 09/21/18 08:00 BUN 17.1 mg/dL (7-18) 09/21/18 08:00 Creatinine 0.9 mg/dL (0.55-1.3) 09/21/18 08:00 Est GFR (CKD-EPI)AfAm 107.22 09/21/18 08:00 Est GFR (CKD-EPI)NonAf 92.51 09/21/18 08:00 POC Glucometer 107 UNITS (80-120) 09/22/18 06:17 Random Glucose 91 mg/dL (74-106) 09/21/18 08:00 Calcium 9.0 mg/dL (8.5-10.1) 09/21/18 08:00 Total Bilirubin 0.9 mg/dL (0.2-1) 09/21/18 08:00 AST 20 U/L (15-37) 09/21/18 08:00 ALT 20 U/L (13-61) 09/21/18 08:00 Alkaline Phosphatase 83 U/L (45-117) 09/21/18 08:00 Total Protein 7.7 g/dl (6.4-8.2) 09/21/18 08:00 Albumin 3.8 g/dl (3.4-5.0) 09/21/18 08:00 Urine Color Dk yellow 09/20/18 15:00 Urine Appearance Clear 09/20/18 15:00 Urine pH 5.5 (5.0-8.0) 09/20/18 15:00 Ur Specific [place] 1.024 (1.010-1.035) 09/20/18 15:00 Urine Protein Negative (NEGATIVE) 09/20/18 15:00 Urine Glucose (UA) Negative (NEGATIVE) 09/20/18 15:00 Urine Ketones Trace (NEGATIVE) H 09/20/18 15:00 Urine Blood Negative (NEGATIVE) 09/20/18 15:00 Urine Nitrite Negative (NEGATIVE) 09/20/18 15:00 Urine Bilirubin Negative (NEGATIVE) 09/20/18 15:00 Urine Urobilinogen 1.0 mg/dL (0.2-1.0) 09/20/18 15:00 Ur Leukocyte Esterase Negative (NEGATIVE) 09/20/18 15:00 RPR Titer Nonreactive (NONREACTIVE) 09/21/18 08:00 TB (QFT) Incubation (.) 09/20/18 11:50 TB Test (QFT) Nil 0.02 IU/mL (.) 09/20/18 11:50 TB Test (QFT) Mitogen >10.00 IU/mL (.) 09/20/18 11:50 TB Test (QFT) Antigen 0.02 IU/mL (.) 09/20/18 11:50 TB Test (QFT) Negative (Negative) 09/20/18 11:50 TB Positive Criteria (.) 09/20/18 11:50 lab noted Assessment: 09/23/18 16:10 alcohol withdrawal sx Plan: continue alcohol detox
[2018-09-23] MEDS: MELATONIN 5 MG TABLETS PO PRN (22:13)
[2018-09-23] MEDS: THIAMINE HCL 100 MG TABLET (FP) PO SCH (22:13)
[2018-09-24] MEDS ORDERED: chlordiazePOXIDE HCL 10 MG CAPSULE PO ONE (05:00)
--- NOTE | 2018-09-24 10:13 | EKG ---
Test Reason : Blood Pressure : / mmHG Vent. Rate : 065 BPM Atrial Rate : 065 BPM P-R Int : 180 ms QRS Dur : 100 ms QT Int : 400 ms P-R-T Axes : 058 058 078 degrees QTc Int : 416 ms NORMAL SINUS RHYTHM NONSPECIFIC T WAVE ABNORMALITY NON-SPECIFIC INTRA-VENTRICULAR CONDUCTION DELAY ABNORMAL ECG Confirmed by MINNA VALLADARES MD ([id number]) on 09/24/2018 10:13:33 AM Referred By: Confirmed By:MINNA VALLADARES MD
[2018-09-24] MEDS: PRENATAL VITAMINS W/ FOLIC ACID TABLET (FP) PO SCH (10:18)
[2018-09-24] MEDS: amLODIPine BESYLATE 5 MG TABLET (FP) PO SCH (10:18)
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
--- NOTE | 2018-09-24 15:58 | PN ---
[facility] Progress Note Note: AFTER CONSULTATION WITH PSYCHIATRIST DR. CHAN, PATIENT DETERMINED TO BE PSYCHIATRICALLY STABLE FOR DISCHARGE FROM DETOX UNIT (SEE NOTE FROM PSYCHIATRIST DR. CHAN FOR 09/24/2018). NO HISTORY OF PSYCHIATRIC DISORDER REPORTED BY PATIENT AT TIME OF DETOX ADMISSION. DUE TO TIME OF DAY IN WHICH PSYCHIATRIC CONSULTATION WAS COMPLETED AND AFTER WHICH FURTHER COORDINATION BETWEEN PSYCHIATRIST, MANAGER FASHION, AND TIRE BALANCER WAS COMPLETED, PATIENT PERMITTED TO REMAIN ON DETOX UNIT UNTIL TOMORROW, AT WHICH TIME HE WILL BE DISCHARGED FROM DETOX UNIT AND WILL PROCEED ON TO OUTPATIENT PROGRAM. Willy LOPEZ NP
[2018-09-24] MEDS: THIAMINE HCL 100 MG TABLET (FP) PO SCH (22:16)
[2018-09-24] MEDS: MELATONIN 5 MG TABLETS PO PRN (22:16)
[2018-09-25 09:12] VITALS: BP 132/82; PULSE 61; TEMP 98.2
[2018-09-25] MEDS: PRENATAL VITAMINS W/ FOLIC ACID TABLET (FP) PO SCH (10:18)
[2018-09-25] MEDS: amLODIPine BESYLATE 5 MG TABLET (FP) PO SCH (10:18)
--- NOTE | 2018-09-25 16:30 | DS ---
[facility] Detox Discharge Summary Admission Date: 09/20/18 Discharge Date: 09/25/18 - History Present History: Alcohol Dependence Additional Comments: PATIENT WILL ATTEND LOCAL 12-STEP / AA OUTPATIENT SUPPORT GROUP MEETINGS FOR AFTERCARE. PATIENT DECLINED OFFER OF MEDICATION PRESCRIPTION FOR HOME MEDICATION AT TIME OF DISCHARGE FROM DETOX, NOTING THAT HE CURRENTLY HAS ADEQUATE SUPPLIES OF ALL PRESCRIBED HOME MEDICATIONS AT HOME. PATIENT WAS DISCHARGED FROM DETOX UNIT NI STABLE MEDICAL CONDITION. Pertinent Past History: History Of Anemia, Asthma, HTN, Hypercholesterolemia, Type II DM, Nicotine Dependence. - Physical Exam Results Vital Signs: Vital Signs Temperature 98.2 F 09/25/18 09:12 Pulse Rate 61 09/25/18 09:12 Respiratory Rate 18 09/25/18 09:12 Blood Pressure 132/82 09/25/18 09:12 O2 Sat by Pulse Oximetry (%) Pertinent Admission Physical Exam Findings: WITHDRAWAL SYMPTOMS. Laboratory Tests 09/20/18 09/20/18 09/20/18 11:50 12:10 15:00 WBC RBC Hgb Hct MCV MCH MCHC RDW Plt Count MPV Sodium Potassium Chloride Carbon Dioxide Anion Gap BUN Creatinine Est GFR (CKD-EPI)AfAm Est GFR (CKD-EPI)NonAf POC Glucometer 106 Random Glucose Calcium Total Bilirubin AST ALT Alkaline Phosphatase Total Protein Albumin Urine Color Dk yellow Urine Appearance Clear Urine pH 5.5 Ur Specific [place] 1.024 Urine Protein Negative Urine Glucose (UA) Negative Urine Ketones Trace H Urine Blood Negative Urine Nitrite Negative Urine Bilirubin Negative Urine Urobilinogen 1.0 Ur Leukocyte Esterase Negative RPR Titer TB (QFT) Incubation TB Test (QFT) Nil 0.02 TB Test (QFT) Mitogen >10.00 TB Test (QFT) Antigen 0.02 TB Test (QFT) Negative TB Positive Criteria 09/21/18 09/21/18 09/21/18 06:04 08:00 08:00 WBC 5.1 RBC 3.60 L Hgb 12.9 Hct 37.8 MCV 105.2 H MCH 35.8 H MCHC 34.0 RDW 14.5 Plt Count 119 L MPV 10.3 Sodium 140 Potassium 3.4 L Chloride 106 Carbon Dioxide 28 Anion Gap 6 L BUN 17.1 Creatinine 0.9 Est GFR (CKD-EPI)AfAm 107.22 Est GFR (CKD-EPI)NonAf 92.51 POC Glucometer 139 Random Glucose 91 Calcium 9.0 Total Bilirubin 0.9 AST 20 ALT 20 Alkaline Phosphatase 83 Total Protein 7.7 Albumin 3.8 Urine Color Urine Appearance Urine pH Ur Specific [place] Urine Protein Urine Glucose (UA) Urine Ketones Urine Blood Urine Nitrite Urine Bilirubin Urine Urobilinogen Ur Leukocyte Esterase RPR Titer TB (QFT) Incubation TB Test (QFT) Nil TB Test (QFT) Mitogen TB Test (QFT) Antigen TB Test (QFT) TB Positive Criteria 09/21/18 09/22/18 09/22/18 08:00 06:17 09:54 WBC RBC Hgb Hct MCV MCH MCHC RDW Plt Count MPV Sodium Potassium 3.7 Chloride Carbon Dioxide Anion Gap BUN Creatinine Est GFR (CKD-EPI)AfAm Est GFR (CKD-EPI)NonAf POC Glucometer 107 Random Glucose Calcium Total Bilirubin AST ALT Alkaline Phosphatase Total Protein Albumin Urine Color Urine Appearance Urine pH Ur Specific [place] Urine Protein Urine Glucose (UA) Urine Ketones Urine Blood Urine Nitrite Urine Bilirubin Urine Urobilinogen Ur Leukocyte Esterase RPR Titer Nonreactive TB (QFT) Incubation TB Test (QFT) Nil TB Test (QFT) Mitogen TB Test (QFT) Antigen TB Test (QFT) TB Positive Criteria LABS NOTED. - Treatment Hospital Course: Detox Protocol Followed, Detoxed Safely, Responded well, Discharged Condition Good Patient has Accepted a Rehab Referral to: PATIENT WILL ATTEND LOCAL 12-STEP/AA OUTPATIENT SUPPORT GROUP MEETINGS. - Medication Discharge Medications: Ambulatory Orders Simvastatin [Zocor -] 10 mg PO HS #30 tablet 07/08/17 metFORMIN HCL [Metformin HCl] 500 mg PO ACBK #30 tablet 07/09/17 Amlodipine Besylate [Norvasc -] 5 mg PO DAILY 09/20/18 - Diagnosis (1) DM type 2 (diabetes mellitus, type 2) Status: Chronic Qualifiers: Diabetes mellitus buttermaker continuous churn insulin use: without alf use Diabetes mellitus complication status: without complication Qualified Code(s): E11.9 - Type 2 diabetes mellitus without complications (2) HTN (hypertension) Status: Chronic Qualifiers: Hypertension type: essential hypertension Qualified Code(s): I10 - Essential (primary) hypertension (3) Hypercholesteremia Status: Chronic (4) Nicotine dependence Status: Chronic Qualifiers: Nicotine product type: cigarettes Substance use status: uncomplicated Qualified Code(s): F17.210 - Nicotine dependence, cigarettes, uncomplicated (5) Alcohol dependence with uncomplicated intoxication Status: Acute (6) Alcohol use disorder Status: Chronic - AMA Did Patient Leave Against Medical Advice: No
== END 2018-09-25 12:39 | disposition home or self-care (01) | DRG 897 ==
LOC: YASAS 09:24 → Y3N 11:48
PROVIDERS: ADMIT Surgery; ATTEND Surgery
PROC: HZ2ZZZZ Detoxification Services for Substance Abuse Treatment (ICD-10-PCS; principal; 2018-09-20)
DX: F10.230 Alcohol dependence with withdrawal, uncomplicated (principal); F17.210 Nicotine dependence, cigarettes, uncomplicated; I10 Essential (primary) hypertension; E78.00 Pure hypercholesterolemia, unspecified; E11.9 Type 2 diabetes mellitus without complications; Z79.84 Long term (current) use of oral hypoglycemic drugs; Z87.09 Personal history of other diseases of the respiratory system; Z86.2 Personal history of diseases of the blood and blood-forming organs and certain disorders involving the immune mechanism
CPT/HCPCS: 36415; 80053; 81003; 82962; 84132; 85027; 86480; 86593; 93005; 93010

== ENCOUNTER 2018-11-07 08:41 | Inpatient (IN) | payer OTHER ==
[2018-11-07 12:02] VITALS: BMI 34.3
--- NOTE | 2018-11-07 12:43 | HP ---
CIWA Score Nausea/Vomitin Muscle Tremors: 3 Anxiety: 2 Agitation: 2 Paroxysmal Sweats: 2 Orientation: 0-Oriented Tacttile Disturbances: 0-None Auditory Disturbances: 0-None Visual Disturbances: 0-None Headache: 1-Very Mild CIWA-Ar Total Score: 12 - Admission Criteria OASAS Guidelines: Admission for Medically Managed Detox: Requires at least one of the followin. CIWA greater than 12 2. Seizures within the past 24 hours 3. Delirium tremens within the past 24 hours 4. Hallucinations within the past 24 hours 5. Acute intervention needed for co occurring medical disorder 6. Acute intervention needed for co occurring psychiatric disorder 7. Severe withdrawal that cannot be handled at a lower level of care (continued vomiting, continued diarrhea, abnormal vital signs) requiring intravenous medication and/or fluids 8. Admission ROS [facility] Chief Complaint: alcohol detox Allergies/Adverse Reactions: Allergies Allergy/AdvReac Type Severity Reaction Status Date / Time No Known Allergies Allergy Verified 11/07/18 11:48 History of Present Illness: 58 yo with DM, HTN, was last here about 6 weeks ago for detox. Seen at [facility] earlier today for alcohol detox. Pt was then referred here. Pt began using alcohol daily since about age 28. Most of his family is scattered. Has a brother in the [place]. Lives in a room ($600)- gets [facility]. Works occ at a restaurant. Drinks alcohol about 1 liter/day of gin. no h/o seizures or DT's DUR- no controlled substances Utox- BZO, CARLOS MANUEL- 0 - Ebola screening Have you traveled outside of the country in the last 21 days: No (N) Have you had contact with anyone from an Ebola affected area: No Do you have a fever: No - Review of Systems Constitutional: No Symptoms Reported EENT: reports: No Symptoms Reported Respiratory: reports: No Symptoms reported Cardiac: reports: No Symptoms Reported GI: reports: No Symptoms Reported : reports: No Symptoms Reported Musculoskeletal: reports: No Symptoms Reported Integumentary: reports: No Symptoms Reported Neuro: reports: No Symptoms reported Endocrine: reports: No Symptoms Reported Hematology: reports: No Symptoms Reported Psychiatric: reports: No Sypmtoms Reported Other Systems: Reviewed and Negative Patient History - Patient Medical History Hx Anemia: Yes Hx Asthma: No Hx Chronic Obstructive Pulmonary Disease (COPD): No Hx Cancer: No Hx Cardiac Disorders: Yes (HTN) Hx Congestive Heart Failure: No Hx Hypertension: Yes Hx Hypercholesterolemia: Yes (Simvastatin 10mg at night) Hx Pacemaker: No HX Cerebrovascular Accident: No Hx Seizures: Yes Hx Dementia: No Hx Diabetes: Yes (Dx June 2004) Hx Gastrointestinal Disorders: No Hx Liver Disease: No Hx Genitourinary Disorders: No Hx Sexually Transmitted Disorders: No Hx Renal Disease (ESRD): Yes (Abnormal Labs in 1994) Hx Thyroid Disease: No Hx Human Immunodeficiency Virus (HIV): No (Last tested 4 years ago) Hx Hepatitis C: No Hx Depression: Yes Hx Suicide Attempt: No Hx Bipolar Disorder: No Hx Schizophrenia: No - Patient Surgical History Past Surgical History: No Hx Neurologic Surgery: No Hx Cataract Extraction: No Hx Cardiac Surgery: No Hx Lung Surgery: No Hx Breast Surgery: No Hx Breast Biopsy: No Hx Abdominal Surgery: No Hx Appendectomy: No Hx Cholecystectomy: No Hx Genitourinary Surgery: No Hx Section: No Hx Orthopedic Surgery: No Other Surgical History: Oral surgery Anesthesia Reaction: No - PPD History Date: 07/07/17 - Smoking Cessation Smoking history: Former smoker Have you smoked in the past 12 months: Yes Aproximately how many cigarettes per day: 0 If you are a former smoker, when did you quit?: 08/09/2017 Cigars Per Day: 0 Hx Chewing Tobacco Use: No Initiated information on smoking cessation: Yes 'Breaking Loose' booklet given: 11/07/18 - Substances abused Alcohol Substance route: Oral Frequency: Daily Amount used: 1 pint of vodka Age of first use: 12 Date of last use: 11/05/18 Family Disease History - Family Disease History Family Disease History: Other: Father (Cardiac;), Mother (Psych hx; Alive), Brother (Seizure ; Alive) Admission Physical Exam S - Vital Signs Vital Signs: Vital Signs - 24 hr 11/07/18 11:37 Temperature 97.1 F L Pulse Rate 82 Respiratory 18 Rate Blood Pressure 153/91 - Physical General Appearance: Yes: Within Normal Limits, No Apparent Distress HEENTM: Yes: Within Normal Limits, EOMI Respiratory: Yes: Within Normal Limits, Chest Non-Tender Neck: Yes: Within Normal Limits, No masses,lesions,Nodules Cardiology: Yes: Within Normal Limits Abdominal: Yes: Non Tender, Protuberent Genitourinary: Yes: Within Normal Limits Back: Yes: Within Normal Limits Musculoskeletal: Yes: Within Normal Limits, Gait Steady Extremities: Yes: Pedal Edema (edema to mid leg 1+ pitting) Neurological: Yes: Within Normal Limits, Fully Oriented, Normal Response Integumentary: Yes: Within Normal Limits Lymphatic: Yes: Within Normal Limits - Diagnostic (1) Alcohol use disorder Current Visit: No Status: Chronic (2) DM type 2 (diabetes mellitus, type 2) Current Visit: No Status: Chronic Qualifiers: Diabetes mellitus residential insulin use: without resin painter use Diabetes mellitus complication status: without complication Qualified Code(s): E11.9 - Type 2 diabetes mellitus without complications (3) HTN (hypertension) Current Visit: No Status: Chronic Qualifiers: Hypertension type: essential hypertension Qualified Code(s): I10 - Essential (primary) hypertension (4) Hypercholesteremia Current Visit: No Status: Chronic Breathalyzer - Breathalyzer Breathalyzer: 0 Urine Drug Screen - Test Device Lot number: [id number] Expiration date: 07/30/20 - Control Is test valid?: Yes - Results Drug screen NEGATIVE: No Urine drug screen results: BZO-Benzodiazepines Inpatient Rehab Admission - Rehab Decision to Admit Inpatient rehab admission?: No
[2018-11-07] MEDS ORDERED: MAGNESIUM CITRATE 300 ML BOTTLE PO PRN (12:55)
[2018-11-07] MEDS ORDERED: hydrOXYzine PAMOATE 25 MG CAPSULE (FP) PO PRN (12:55)
[2018-11-07] MEDS ORDERED: MAG HYDROX/AL HYDROX/SIMETH 30 ML UNIT-DOSE CUP PO PRN (12:55)
[2018-11-07] MEDS ORDERED: chlordiazePOXIDE HCL 25 MG CAPSULE PO PRN (12:55)
[2018-11-07] MEDS ORDERED: MAGNESIUM HYDROX 2400MG/30ML ORAL SUSPENSION 30 ML CUP PO PRN (12:55)
[2018-11-07] MEDS ORDERED: chlordiazePOXIDE HCL 25 MG CAPSULE PO ONE (12:55)
[2018-11-07] MEDS ORDERED: ACETAMINOPHEN 325 MG TABLET (FP) PO PRN ×2 (12:55)
[2018-11-07] MEDS ORDERED: MENTHOL/PHENOL 1 EACH UD MM PRN (12:55)
[2018-11-07] MEDS ORDERED: MELATONIN 5 MG TABLETS PO PRN (12:55)
[2018-11-07] MEDS ORDERED: METHOCARBAMOL 500 MG TABLET PO PRN (12:55)
[2018-11-07] MEDS ORDERED: IBUPROFEN 400 MG TABLET (FP) PO PRN (12:55)
[2018-11-07] MEDS ORDERED: BISMUTH SUBSALICYLATE 524 MG/30 ML UD PO PRN (12:55)
[2018-11-07] MEDS: THIAMINE HCL 100 MG TABLET (FP) PO SCH (22:24)
[2018-11-07] MEDS: ATORVASTATIN CA 10 MG TABLET (FP) PO SCH (22:24)
[2018-11-07] MEDS: chlordiazePOXIDE HCL 25 MG CAPSULE PO SCH (22:24)
[2018-11-08] MEDS: chlordiazePOXIDE HCL 25 MG CAPSULE PO SCH ×4 (05:38→22:41)
[2018-11-08] MEDS: metFORMIN HCL 500 MG TABLET (FP) PO SCH (07:40)
[2018-11-08] MEDS: PRENATAL VITAMINS W/ FOLIC ACID TABLET (FP) PO SCH (10:20)
[2018-11-08] MEDS: amLODIPine BESYLATE 5 MG TABLET (FP) PO SCH (10:22)
--- NOTE | 2018-11-08 10:40 | PN ---
S CIWA - CIWA Score Nausea/Vomitin-Mild Nausea/No Vomiting Muscle Tremors: 4-Moderate,w/Arms Extend Anxiety: 3 Agitation: 2 Paroxysmal Sweats: 2 Orientation: 0-Oriented Tacttile Disturbances: 1-Very Mild Itch/Numbness Auditory Disturbances: 0-None Visual Disturbances: 1-Very Mild Sensitivity Headache: 1-Very Mild CIWA-Ar Total Score: 15 S Progress Note (SOAP) Subjective: 58 years old male 3rd patient [facility] admission since 2018 was admitted on 11/07/18 for alcohol withdrawal sx management doing well with librium detox regimen able to tolerate food and fluid better today sitting on the edge of the bed comfortably breath ease and even speech clearly Objective: 11/08/18 10:42 Vital Signs Temperature 97.5 F L 11/08/18 09:35 Pulse Rate 78 11/08/18 09:35 Respiratory Rate 18 11/08/18 09:35 Blood Pressure 137/89 11/08/18 09:35 O2 Sat by Pulse Oximetry (%) Laboratory Last Values POC Glucometer 151 UNITS (80-120) 11/08/18 05:40 11/08/18 10:42 lab pending bp within acceptable range at this time Assessment: 11/08/18 10:43 alcohol withdrawal sx Plan: continue libirum detox regimen
[2018-11-08 12:41] LABS: HEMATOCRIT 35.1 % (35.4-49); HEMOGLOBIN 11.8 GM/dL (11.7-16.9); MCH 34.7 pg (25.7-33.7); MCHC 33.7 g/dl (32.0-35.9); MEAN CELL VOLUME 103.1 fl (80-96); MEAN PLT VOLUME 10.1 fl (7.5-11.1); PLATELET COUNT 106 K/MM3 (134-434); RBC 3.41 M/mm3 (4.00-5.60); RDW 14.8 % (11.9-15.9); WHITE BLOOD COUNT 6.6 K/mm3 (4.0-10.0)
[2018-11-08 12:56] LABS: ALBUMIN 3.2 g/dl (3.4-5.0); BILIRUBIN,TOTAL 1.1 mg/dL (0.2-1); BLOOD UREA NITROGEN 19.1 mg/dL (7-18); CALCIUM 8.4 mg/dL (8.5-10.1); CREATININE 0.9 mg/dL (0.55-1.3); POTASSIUM 3.8 mmol/L (3.5-5.1); TOT PROT 6.6 g/dl (6.4-8.2)
[2018-11-08] MEDS: THIAMINE HCL 100 MG TABLET (FP) PO SCH (22:41)
[2018-11-08] MEDS: ATORVASTATIN CA 10 MG TABLET (FP) PO SCH (22:41)
[2018-11-09] MEDS: chlordiazePOXIDE HCL 25 MG CAPSULE PO SCH ×4 (05:41→22:57)
[2018-11-09] MEDS: metFORMIN HCL 500 MG TABLET (FP) PO SCH (07:02)
[2018-11-09] MEDS: PRENATAL VITAMINS W/ FOLIC ACID TABLET (FP) PO SCH (10:18)
[2018-11-09] MEDS: amLODIPine BESYLATE 5 MG TABLET (FP) PO SCH (10:19)
--- NOTE | 2018-11-09 10:26 | PN ---
[facility] CIWA - CIWA Score Nausea/Vomitin-Mild Nausea/No Vomiting Muscle Tremors: 3 Anxiety: 3 Agitation: 2 Paroxysmal Sweats: 2 Orientation: 0-Oriented Tacttile Disturbances: 0-None Auditory Disturbances: 0-None Visual Disturbances: 0-None Headache: 0-None Present CIWA-Ar Total Score: 11 [facility] Progress Note (SOAP) Subjective: doing well with librium detox regimen sitting on the edge of the bed eating breakfast no trouble chewing swallowing tolerate food and fluid well sleep batter at night Objective: 11/09/18 10:25 Vital Signs Temperature 96.4 F L 11/09/18 09:56 Pulse Rate 68 11/09/18 09:56 Respiratory Rate 18 11/09/18 09:56 Blood Pressure 129/81 11/09/18 09:56 O2 Sat by Pulse Oximetry (%) Laboratory Last Values WBC 6.6 K/mm3 (4.0-10.0) 11/08/18 09:00 RBC 3.41 M/mm3 (4.00-5.60) L 11/08/18 09:00 Hgb 11.8 GM/dL (11.7-16.9) 11/08/18 09:00 Hct 35.1 % (35.4-49) L 11/08/18 09:00 MCV 103.1 fl (80-96) H 11/08/18 09:00 MCH 34.7 pg (25.7-33.7) H 11/08/18 09:00 MCHC 33.7 g/dl (32.0-35.9) 11/08/18 09:00 RDW 14.8 % (11.9-15.9) 11/08/18 09:00 Plt Count 106 K/MM3 (134-434) L 11/08/18 09:00 MPV 10.1 fl (7.5-11.1) 11/08/18 09:00 Sodium 140 mmol/L (136-145) 11/08/18 09:00 Potassium 3.8 mmol/L (3.5-5.1) 11/08/18 09:00 Chloride 105 mmol/L (98-107) 11/08/18 09:00 Carbon Dioxide 28 mmol/L (21-32) 11/08/18 09:00 Anion Gap 7 MMOL/L (8-16) L 11/08/18 09:00 BUN 19.1 mg/dL (7-18) H 11/08/18 09:00 Creatinine 0.9 mg/dL (0.55-1.3) 11/08/18 09:00 Est GFR (CKD-EPI)AfAm 107.22 11/08/18 09:00 Est GFR (CKD-EPI)NonAf 92.51 11/08/18 09:00 POC Glucometer 161 UNITS (80-120) 11/09/18 05:41 Random Glucose 112 mg/dL (74-106) H 11/08/18 09:00 Calcium 8.4 mg/dL (8.5-10.1) L 11/08/18 09:00 Total Bilirubin 1.1 mg/dL (0.2-1) H 11/08/18 09:00 AST 26 U/L (15-37) 11/08/18 09:00 ALT 22 U/L (13-61) 11/08/18 09:00 Alkaline Phosphatase 79 U/L (45-117) 11/08/18 09:00 Total Protein 6.6 g/dl (6.4-8.2) 11/08/18 09:00 Albumin 3.2 g/dl (3.4-5.0) L 11/08/18 09:00 RPR Titer Nonreactive (NONREACTIVE) 11/08/18 09:00 lab noted Assessment: 11/09/18 10:25 alcohol withdrawal sx Plan: continue librium detox
[2018-11-09] MEDS: THIAMINE HCL 100 MG TABLET (FP) PO SCH (22:57)
[2018-11-09] MEDS: ATORVASTATIN CA 10 MG TABLET (FP) PO SCH (22:57)
[2018-11-10] MEDS ORDERED: chlordiazePOXIDE HCL 10 MG CAPSULE PO PRN
[2018-11-10] MEDS: chlordiazePOXIDE HCL 10 MG CAPSULE PO SCH ×4 (07:20→22:27)
[2018-11-10] MEDS: metFORMIN HCL 500 MG TABLET (FP) PO SCH (08:09)
[2018-11-10] MEDS: amLODIPine BESYLATE 5 MG TABLET (FP) PO SCH (10:14)
[2018-11-10] MEDS: PRENATAL VITAMINS W/ FOLIC ACID TABLET (FP) PO SCH (10:14)
--- NOTE | 2018-11-10 11:39 | PN ---
[facility] CIWA - CIWA Score Nausea/Vomitin-No Nausea/No Vomiting Muscle Tremors: 2 Anxiety: 2 Agitation: 2 Paroxysmal Sweats: 1-Minimal Palms Moist Orientation: 0-Oriented Tacttile Disturbances: 0-None Auditory Disturbances: 0-None Visual Disturbances: 0-None Headache: 0-None Present CIWA-Ar Total Score: 7 S Progress Note (SOAP) Subjective: doing well with libirum detox regimen consider return home today due to limited TV channel mild tremor less anxiety Objective: 11/10/18 11:38 Vital Signs Temperature 97.7 F 11/10/18 09:18 Pulse Rate 71 11/10/18 09:18 Respiratory Rate 18 11/10/18 09:18 Blood Pressure 145/90 11/10/18 09:18 O2 Sat by Pulse Oximetry (%) Laboratory Last Values WBC 6.6 K/mm3 (4.0-10.0) 11/08/18 09:00 RBC 3.41 M/mm3 (4.00-5.60) L 11/08/18 09:00 Hgb 11.8 GM/dL (11.7-16.9) 11/08/18 09:00 Hct 35.1 % (35.4-49) L 11/08/18 09:00 MCV 103.1 fl (80-96) H 11/08/18 09:00 MCH 34.7 pg (25.7-33.7) H 11/08/18 09:00 MCHC 33.7 g/dl (32.0-35.9) 11/08/18 09:00 RDW 14.8 % (11.9-15.9) 11/08/18 09:00 Plt Count 106 K/MM3 (134-434) L 11/08/18 09:00 MPV 10.1 fl (7.5-11.1) 11/08/18 09:00 Sodium 140 mmol/L (136-145) 11/08/18 09:00 Potassium 3.8 mmol/L (3.5-5.1) 11/08/18 09:00 Chloride 105 mmol/L (98-107) 11/08/18 09:00 Carbon Dioxide 28 mmol/L (21-32) 11/08/18 09:00 Anion Gap 7 MMOL/L (8-16) L 11/08/18 09:00 BUN 19.1 mg/dL (7-18) H 11/08/18 09:00 Creatinine 0.9 mg/dL (0.55-1.3) 11/08/18 09:00 Est GFR (CKD-EPI)AfAm 107.22 11/08/18 09:00 Est GFR (CKD-EPI)NonAf 92.51 11/08/18 09:00 POC Glucometer 98 UNITS (80-120) 11/09/18 16:38 Random Glucose 112 mg/dL (74-106) H 11/08/18 09:00 Calcium 8.4 mg/dL (8.5-10.1) L 11/08/18 09:00 Total Bilirubin 1.1 mg/dL (0.2-1) H 11/08/18 09:00 AST 26 U/L (15-37) 11/08/18 09:00 ALT 22 U/L (13-61) 11/08/18 09:00 Alkaline Phosphatase 79 U/L (45-117) 11/08/18 09:00 Total Protein 6.6 g/dl (6.4-8.2) 11/08/18 09:00 Albumin 3.2 g/dl (3.4-5.0) L 11/08/18 09:00 RPR Titer Nonreactive (NONREACTIVE) 11/08/18 09:00 lab noted one isolated incident bp elevation 11/10/18 11:39 Assessment: 11/10/18 11:39 alcohol withdrawal sx Plan: continue librium detox regimen
[2018-11-10] MEDS: ATORVASTATIN CA 10 MG TABLET (FP) PO SCH (22:27)
[2018-11-10] MEDS: THIAMINE HCL 100 MG TABLET (FP) PO SCH (22:27)
[2018-11-11] MEDS ORDERED: chlordiazePOXIDE HCL 10 MG CAPSULE PO SCH (05:00)
[2018-11-11] MEDS: metFORMIN HCL 500 MG TABLET (FP) PO SCH (07:02)
[2018-11-11 09:16] VITALS: BP 116/76; PULSE 74; TEMP 98.1
--- NOTE | 2018-11-11 10:52 | DS ---
[facility] Detox Discharge Summary Admission Date: 11/07/18 Discharge Date: 11/11/18 - History Present History: Alcohol Dependence Additional Comments: 58 years old male admitted on 11/07/18 for alcohol withdrawal sx managment did well with librium detox regimen requests to be discharged one day early no complication through out the detox stay alert oriented x 3 cardiac S1S2 regular rate rhythm respiratory no wheezing denies nausea vomiting - Physical Exam Results Vital Signs: Vital Signs Temperature 98.1 F 11/11/18 09:16 Pulse Rate 74 11/11/18 09:16 Respiratory Rate 17 11/11/18 09:16 Blood Pressure 116/76 11/11/18 09:16 O2 Sat by Pulse Oximetry (%) Pertinent Admission Physical Exam Findings: alcohol withdrawal sx Laboratory Last Values WBC 6.6 K/mm3 (4.0-10.0) 11/08/18 09:00 RBC 3.41 M/mm3 (4.00-5.60) L 11/08/18 09:00 Hgb 11.8 GM/dL (11.7-16.9) 11/08/18 09:00 Hct 35.1 % (35.4-49) L 11/08/18 09:00 MCV 103.1 fl (80-96) H 11/08/18 09:00 MCH 34.7 pg (25.7-33.7) H 11/08/18 09:00 MCHC 33.7 g/dl (32.0-35.9) 11/08/18 09:00 RDW 14.8 % (11.9-15.9) 11/08/18 09:00 Plt Count 106 K/MM3 (134-434) L 11/08/18 09:00 MPV 10.1 fl (7.5-11.1) 11/08/18 09:00 Sodium 140 mmol/L (136-145) 11/08/18 09:00 Potassium 3.8 mmol/L (3.5-5.1) 11/08/18 09:00 Chloride 105 mmol/L (98-107) 11/08/18 09:00 Carbon Dioxide 28 mmol/L (21-32) 11/08/18 09:00 Anion Gap 7 MMOL/L (8-16) L 11/08/18 09:00 BUN 19.1 mg/dL (7-18) H 11/08/18 09:00 Creatinine 0.9 mg/dL (0.55-1.3) 11/08/18 09:00 Est GFR (CKD-EPI)AfAm 107.22 11/08/18 09:00 Est GFR (CKD-EPI)NonAf 92.51 11/08/18 09:00 POC Glucometer 135 UNITS (80-120) 11/11/18 05:22 Random Glucose 112 mg/dL (74-106) H 11/08/18 09:00 Calcium 8.4 mg/dL (8.5-10.1) L 11/08/18 09:00 Total Bilirubin 1.1 mg/dL (0.2-1) H 11/08/18 09:00 AST 26 U/L (15-37) 11/08/18 09:00 ALT 22 U/L (13-61) 11/08/18 09:00 Alkaline Phosphatase 79 U/L (45-117) 11/08/18 09:00 Total Protein 6.6 g/dl (6.4-8.2) 11/08/18 09:00 Albumin 3.2 g/dl (3.4-5.0) L 11/08/18 09:00 RPR Titer Nonreactive (NONREACTIVE) 11/08/18 09:00 lab noted - Treatment Hospital Course: Detox Protocol Followed, Detoxed Safely, Responded well, Discharged Condition Good, Rehab Referral Accepted Patient has Accepted a Rehab Referral to: [facility] - Medication Discharge Medications: Ambulatory Orders Simvastatin [Zocor -] 10 mg PO HS #30 tablet 07/08/17 metFORMIN HCL [Metformin HCl] 500 mg PO ACBK #30 tablet 07/09/17 Amlodipine Besylate [Norvasc -] 5 mg PO DAILY #30 tablet 11/10/18 Atorvastatin Ca [Lipitor] 10 mg PO HS #30 tablet 11/10/18 metFORMIN HCL [Glucophage -] 500 mg PO ACBK #30 tablet 11/10/18 - Diagnosis (1) Alcohol dependence with uncomplicated intoxication Current Visit: Yes Status: Acute (2) DM type 2 (diabetes mellitus, type 2) Current Visit: Yes Status: Chronic Qualifiers: Diabetes mellitus laminate floor installer insulin use: without laminate floor installer use Diabetes mellitus complication status: without complication Qualified Code(s): E11.9 - Type 2 diabetes mellitus without complications (3) Nicotine dependence Current Visit: Yes Status: Acute Qualifiers: Nicotine product type: cigarettes Substance use status: in withdrawal Qualified Code(s): F17.213 - Nicotine dependence, cigarettes, with withdrawal (4) Substance induced mood disorder Current Visit: Yes Status: Suspected - AMA Did Patient Leave Against Medical Advice: No CIWA Score - CIWA Score Nausea/Vomitin-No Nausea/No Vomiting Muscle Tremors: 1-None Visible, but [place] Anxiety: 1-Mildly Anxious Agitation: 1-Slight > Activity Paroxysmal Sweats: No Perspiration Orientation: 0-Oriented Tacttile Disturbances: 0-None Auditory Disturbances: 0-None Visual Disturbances: 0-None Headache: 0-None Present CIWA-Ar Total Score: 3
[2018-11-12] MEDS ORDERED: chlordiazePOXIDE HCL 10 MG CAPSULE PO ONE (05:00)
== END 2018-11-11 10:05 | disposition home or self-care (01) | DRG 897 ==
LOC: YASAS 08:41 → Y3N 14:27
PROVIDERS: ADMIT Surgery; ATTEND Surgery
PROC: HZ2ZZZZ Detoxification Services for Substance Abuse Treatment (ICD-10-PCS; principal; 2018-11-07)
DX: F10.230 Alcohol dependence with withdrawal, uncomplicated (principal); F17.213 Nicotine dependence, cigarettes, with withdrawal; F19.24 Other psychoactive substance dependence with psychoactive substance-induced mood disorder; I10 Essential (primary) hypertension; E11.9 Type 2 diabetes mellitus without complications; E78.00 Pure hypercholesterolemia, unspecified; D64.9 Anemia, unspecified; Z79.84 Long term (current) use of oral hypoglycemic drugs
CPT/HCPCS: 36415; 80053; 82962; 85027; 86593

== ENCOUNTER 2022-03-18 20:20 | Inpatient (IN) | payer OTHER ==
[2022-03-18] MEDS ORDERED: NICOTINE POLACRILEX 2 MG GUM BUC PRN (21:03)
[2022-03-18] MEDS ORDERED: IBUPROFEN 400 MG TABLET (FP) PO PRN (21:03)
[2022-03-18] MEDS ORDERED: DICYCLOMINE HCL 10 MG CAPSULE PO PRN (21:03)
[2022-03-18] MEDS ORDERED: IBUPROFEN 600 MG TABLET (FP) PO PRN (21:03)
[2022-03-18] MEDS ORDERED: BENZOCAINE/MENTHOL (CHLORASEPTIC ) LOZENGE MM PRN (21:03)
[2022-03-18] MEDS ORDERED: ONDANSETRON *ODT* 4 MG TABLET SL PRN (21:03)
[2022-03-18] MEDS ORDERED: BISMUTH SUBSALICYLATE 524 MG/30 ML PO PRN (21:03)
[2022-03-18] MEDS ORDERED: ACETAMINOPHEN 325 MG TABLET (FP) PO PRN ×2 (21:03)
[2022-03-18] MEDS ORDERED: MAG HYDROX/AL HYDROX/SIMETH 30 ML UNIT-DOSE CUP PO PRN (21:03)
[2022-03-18] MEDS ORDERED: guaiFENesin 200 MG/10 ML 10 ML UNIT-DOSE CUPS PO PRN (21:03)
[2022-03-18] MEDS ORDERED: P-EPHED 60MG/TRIPROLIDI 2.5MG TABLET PO PRN (21:03)
[2022-03-18] MEDS ORDERED: POLYETHYLENE GLYCOL (HEALTHYLAX) 3350 17 GM PACKET PO PRN (21:03)
[2022-03-18] MEDS ORDERED: MAGNESIUM HYDROX 2400MG/30ML ORAL SUSPENSION 30 ML CUP PO PRN (21:03)
[2022-03-18] MEDS ORDERED: LOPERAMIDE HCL 2 MG CAPSULE PO PRN (21:03)
[2022-03-19 01:31] VITALS: BMI 37.3
[2022-03-19] MEDS: THIAMINE HCL 100 MG TABLET (FP) PO SCH ×2 (02:57→22:47)
[2022-03-19] MEDS ORDERED: chlordiazePOXIDE HCL 25 MG CAPSULE PO PRN (09:00)
[2022-03-19] MEDS ORDERED: amLODIPine BESYLATE 10 MG TABLET (FP) PO SCH (10:00)
[2022-03-19 10:28] LABS: HEMATOCRIT 29.9 % (35.4-49); HEMOGLOBIN 9.9 GM/dL (11.7-16.9); MCH 30.8 pg (25.7-33.7); MEAN CELL VOLUME 93.4 fl (80-96); MEAN PLT VOLUME 8.5 fl (7.5-11.1); PLATELET COUNT 141 10^3/uL (134-434); RDW 15.5 % (11.9-15.9); WHITE BLOOD COUNT 4.2 K/mm3 (4.0-10.0)
[2022-03-19] MEDS: PRENATAL VITAMINS W/ FOLIC ACID TABLET (FP) PO SCH (10:47)
[2022-03-19 10:49] LABS: CHLORIDE 99 mmol/L (98-107); SODIUM 138 mmol/L (136-145)
[2022-03-19] MEDS: chlordiazePOXIDE HCL 25 MG CAPSULE PO SCH ×3 (10:50→22:47)
[2022-03-19 10:52] LABS: ALBUMIN 2.8 g/dl (3.4-5.0); ANION GAP 15 MMOL/L (8-16); BLOOD UREA NITROGEN 12.2 mg/dL (7-18); CO2 24 mmol/L (21-32)
[2022-03-19 10:55] LABS: SGOT/AST 10 U/L (15-37); SGPT/ALT 15 U/L (13-61)
[2022-03-19 10:57] LABS: BILIRUBIN,TOTAL 0.4 mg/dL (0.2-1); TOT PROT 6.6 g/dl (6.4-8.2)
[2022-03-19 10:58] LABS: ALK PHOS 87 U/L (45-117)
[2022-03-19 11:07] LABS: GLUCOSE,RANDOM 468 mg/dL (74-106)
[2022-03-19] MEDS: metFORMIN HCL 500 MG TABLET (FP) PO SCH (17:26)
[2022-03-19] MEDS: INSULIN SLIDING SCALE (NOVOLOG) 1 VIAL SQ SCH (17:28)
[2022-03-20] MEDS: metFORMIN HCL 500 MG TABLET (FP) PO SCH ×2 (06:29→17:00)
[2022-03-20] MEDS: chlordiazePOXIDE HCL 25 MG CAPSULE PO SCH ×4 (06:29→22:23)
[2022-03-20] MEDS: INSULIN SLIDING SCALE (NOVOLOG) 1 VIAL SQ SCH ×2 (06:30→17:12)
[2022-03-20] MEDS ORDERED: INSULIN (NOVOLOG) ASPART 100 UNITS/ML 10ML VIAL ONE ×2 (06:31→17:12)
[2022-03-20] MEDS: amLODIPine BESYLATE 5 MG TABLET (FP) PO SCH (10:29)
[2022-03-20] MEDS: PRENATAL VITAMINS W/ FOLIC ACID TABLET (FP) PO SCH (11:00)
[2022-03-20] MEDS: THIAMINE HCL 100 MG TABLET (FP) PO SCH (22:23)
[2022-03-20] MEDS: ATORVASTATIN CA 10 MG TABLET (FP) PO SCH (22:25)
[2022-03-21] MEDS ORDERED: chlordiazePOXIDE HCL 10 MG CAPSULE PO PRN
[2022-03-21] MEDS: metFORMIN HCL 500 MG TABLET (FP) PO SCH ×2 (06:19→16:55)
[2022-03-21] MEDS: chlordiazePOXIDE HCL 10 MG CAPSULE PO SCH ×4 (06:19→22:13)
[2022-03-21] MEDS: INSULIN SLIDING SCALE (NOVOLOG) 1 VIAL SQ SCH ×2 (07:49→16:56)
[2022-03-21] MEDS ORDERED: INSULIN (NOVOLOG) ASPART 100 UNITS/ML 10ML VIAL ONE (07:53)
[2022-03-21] MEDS: PRENATAL VITAMINS W/ FOLIC ACID TABLET (FP) PO SCH (10:58)
[2022-03-21] MEDS: amLODIPine BESYLATE 5 MG TABLET (FP) PO SCH (10:58)
[2022-03-21] MEDS: FERROUS SO4 325 MG TABLET (FP) PO SCH (16:55)
[2022-03-21] MEDS: ATORVASTATIN CA 10 MG TABLET (FP) PO SCH (22:12)
[2022-03-21] MEDS: THIAMINE HCL 100 MG TABLET (FP) PO SCH (22:12)
[2022-03-22] MEDS: chlordiazePOXIDE HCL 10 MG CAPSULE PO SCH ×2 (05:28→17:26)
[2022-03-22] MEDS: INSULIN SLIDING SCALE (NOVOLOG) 1 VIAL SQ SCH ×2 (07:15→17:03)
[2022-03-22] MEDS: metFORMIN HCL 500 MG TABLET (FP) PO SCH ×2 (07:24→17:24)
[2022-03-22] MEDS: FERROUS SO4 325 MG TABLET (FP) PO SCH ×2 (07:29→17:24)
[2022-03-22] MEDS: PRENATAL VITAMINS W/ FOLIC ACID TABLET (FP) PO SCH (10:21)
[2022-03-22] MEDS: amLODIPine BESYLATE 5 MG TABLET (FP) PO SCH (10:21)
[2022-03-22] MEDS: THIAMINE HCL 100 MG TABLET (FP) PO SCH (22:18)
[2022-03-22] MEDS: ATORVASTATIN CA 10 MG TABLET (FP) PO SCH (22:18)
[2022-03-23] MEDS ORDERED: chlordiazePOXIDE HCL 10 MG CAPSULE PO ONE (05:00)
[2022-03-23] MEDS: metFORMIN HCL 500 MG TABLET (FP) PO SCH (07:28)
[2022-03-23] MEDS: FERROUS SO4 325 MG TABLET (FP) PO SCH (07:28)
[2022-03-23] MEDS: INSULIN SLIDING SCALE (NOVOLOG) 1 VIAL SQ SCH (07:42)
[2022-03-23 10:01] VITALS: BP 133/77; PULSE 82; RESP 16; TEMP 98.1
[2022-03-23] MEDS: amLODIPine BESYLATE 5 MG TABLET (FP) PO SCH (10:14)
[2022-03-23] MEDS: PRENATAL VITAMINS W/ FOLIC ACID TABLET (FP) PO SCH (10:14)
== END 2022-03-23 10:51 | disposition home or self-care (01) | DRG 897 ==
LOC: YASAS 20:20 → Y6N 03-19 01:53
PROVIDERS: ADMIT Allergy & Immunology; ATTEND Surgery
PROC: HZ2ZZZZ Detoxification Services for Substance Abuse Treatment (ICD-10-PCS; principal; 2022-03-19)
DX: F10.230 Alcohol dependence with withdrawal, uncomplicated (principal); F17.200 Nicotine dependence, unspecified, uncomplicated; I10 Essential (primary) hypertension; K21.9 Gastro-esophageal reflux disease without esophagitis; E78.00 Pure hypercholesterolemia, unspecified; E11.9 Type 2 diabetes mellitus without complications; Z79.84 Long term (current) use of oral hypoglycemic drugs; E66.9 Obesity, unspecified; Z68.37 Body mass index [BMI] 37.0-37.9, adult
CPT/HCPCS: 36415; 80053; 82607; 82746; 82962; 83036; 83540; 83550; 85027; 86780; 87811; C9803-CS; U0003; U0005

== ENCOUNTER 2022-03-26 21:28 | Emergency (ER) | payer OTHER ==
[2022-03-26 21:42] VITALS: BMI 36.1
[2022-03-26 23:21] LABS: BASO % 0.2 % (0-2.0); EOS % 0.3 % (0-4.5); HEMATOCRIT 32.1 % (35.4-49); HEMOGLOBIN 10.7 GM/dL (11.7-16.9); LYMPH % 10.6 % (8-40); MCHC 33.4 g/dl (32.0-35.9); MEAN CELL VOLUME 92.7 fl (80-96); MEAN PLT VOLUME 8.4 fl (7.5-11.1); MONO % 6.3 % (3.8-10.2); NEUT % 82.6 % (42.8-82.8); PLATELET COUNT 139 10^3/uL (134-434); RBC 3.46 M/mm3 (4.00-5.60); RDW 16.6 % (11.9-15.9)
[2022-03-26 23:45] LABS: ALBUMIN 3.1 g/dl (3.4-5.0); CALCIUM 8.4 mg/dL (8.5-10.1)
[2022-03-26 23:46] LABS: BLOOD UREA NITROGEN 9.8 mg/dL (7-18)
[2022-03-26 23:48] LABS: CREATININE 0.8 mg/dL (0.55-1.3)
[2022-03-26 23:49] LABS: TOT PROT 6.9 g/dl (6.4-8.2)
[2022-03-27] MEDS ORDERED: FOLIC ACID INJECTION - 1 MG, THIAMINE HCL 100 MG, MULTIVIT INJECTION ADULT 10 ML in SOD... IVPB ONE (00:01)
[2022-03-27 01:23] VITALS: BP 122/79; PULSE 97; RESP 20; TEMP 97.6
[2022-03-27] MEDS ORDERED: POTASSIUM CHLORIDE ORAL LIQUID 20 MEQ/15 ML PO ONE (02:00)
[2022-03-27] MEDS ORDERED: POTASSIUM CHLORIDE ORAL LIQUID 20 MEQ/15 ML ONE (02:30)
== END 2022-03-27 03:25 | disposition home or self-care (01) ==
LOC: JER 21:28 → MERGE 21:28 → JER 03-27 03:25
PROC: 3E033GC Introduction of Other Therapeutic Substance into Peripheral Vein, Percutaneous Approach (ICD-10-PCS; principal; 2022-03-26)
DX: E46 Unspecified protein-calorie malnutrition (principal); F10.90 Alcohol use, unspecified, uncomplicated; Z59.00 Homelessness unspecified
CPT/HCPCS: 0241U-QW; 36415; 70450-TC; 71046-TC-FY; 80053; 82962; 84484; 85025; 93005; 93010; 99285-25

== ENCOUNTER 2022-03-27 03:40 | Inpatient (IN) | payer OTHER ==
[2022-03-27 04:42] VITALS: RESP 18; BMI 38.2
[2022-03-27] MEDS ORDERED: NICOTINE POLACRILEX 2 MG GUM BUC PRN (05:11)
[2022-03-27] MEDS ORDERED: POLYETHYLENE GLYCOL (HEALTHYLAX) 3350 17 GM PACKET PO PRN (05:11)
[2022-03-27] MEDS ORDERED: ACETAMINOPHEN 325 MG TABLET (FP) PO PRN (05:11)
[2022-03-27] MEDS ORDERED: MAG HYDROX/AL HYDROX/SIMETH 30 ML UNIT-DOSE CUP PO PRN (05:11)
[2022-03-27] MEDS ORDERED: BENZOCAINE/MENTHOL (CHLORASEPTIC ) LOZENGE MM PRN (05:11)
[2022-03-27] MEDS ORDERED: guaiFENesin 200 MG/10 ML 10 ML UNIT-DOSE CUPS PO PRN (05:11)
[2022-03-27] MEDS ORDERED: P-EPHED 60MG/TRIPROLIDI 2.5MG TABLET PO PRN (05:11)
[2022-03-27] MEDS ORDERED: MAGNESIUM HYDROX 2400MG/30ML ORAL SUSPENSION 30 ML CUP PO PRN (05:11)
[2022-03-27] MEDS ORDERED: IBUPROFEN 400 MG TABLET (FP) PO PRN (05:11)
[2022-03-27] MEDS ORDERED: LOPERAMIDE HCL 2 MG CAPSULE PO PRN (05:11)
[2022-03-27] MEDS: metFORMIN HCL 500 MG TABLET (FP) PO SCH ×2 (06:39→17:25)
[2022-03-27] MEDS: INSULIN SLIDING SCALE (NOVOLOG) 1 VIAL SQ SCH ×4 (07:47→21:39)
[2022-03-27] MEDS ORDERED: INSULIN (NOVOLOG) ASPART 100 UNITS/ML 10ML VIAL ONE ×2 (07:50→13:33)
[2022-03-27] MEDS ORDERED: FERROUS SO4 325 MG TABLET (FP) PO SCH (10:00)
[2022-03-27] MEDS: amLODIPine BESYLATE 5 MG TABLET (FP) PO SCH (10:08)
[2022-03-27] MEDS: NICOTINE 14 MG/24 HOURS TOPICAL PATCH TD SCH (10:08)
[2022-03-27] MEDS: PRENATAL VITAMINS W/ FOLIC ACID TABLET (FP) PO SCH (10:08)
[2022-03-27 11:30] LABS: CHLORIDE 95 mmol/L (98-107); SODIUM 132 mmol/L (136-145)
[2022-03-27 11:31] LABS: CALCIUM 8.1 mg/dL (8.5-10.1)
[2022-03-27 11:32] LABS: ANION GAP 13 MMOL/L (8-16); BLOOD UREA NITROGEN 10.1 mg/dL (7-18); CO2 24 mmol/L (21-32)
[2022-03-27 11:34] LABS: CREATININE 1.2 mg/dL (0.55-1.3)
[2022-03-27 11:41] LABS: GLUCOSE,RANDOM 558 mg/dL (74-106)
[2022-03-27] MEDS: ATORVASTATIN CA 10 MG TABLET (FP) PO SCH (21:35)
[2022-03-27] MEDS: THIAMINE HCL 100 MG TABLET (FP) PO SCH (21:35)
[2022-03-27] MEDS: MELATONIN 5 MG TABLETS PO SCH (21:35)
[2022-03-28] MEDS ORDERED: INSULIN (NOVOLOG) ASPART 100 UNITS/ML 10ML VIAL ONE ×2 (07:37→13:50)
[2022-03-28] MEDS: metFORMIN HCL 500 MG TABLET (FP) PO SCH ×2 (07:41→16:55)
[2022-03-28] MEDS: INSULIN SLIDING SCALE (NOVOLOG) 1 VIAL SQ SCH ×4 (07:43→21:45)
[2022-03-28] MEDS: amLODIPine BESYLATE 5 MG TABLET (FP) PO SCH (10:02)
[2022-03-28] MEDS: NICOTINE 14 MG/24 HOURS TOPICAL PATCH TD SCH (10:02)
[2022-03-28] MEDS: PRENATAL VITAMINS W/ FOLIC ACID TABLET (FP) PO SCH (10:02)
[2022-03-28] MEDS: ATORVASTATIN CA 10 MG TABLET (FP) PO SCH (21:44)
[2022-03-28] MEDS: INSULIN (LEVEMIR) 100 UNITS/ML UNITS SQ SCH (21:44)
[2022-03-28] MEDS: MELATONIN 5 MG TABLETS PO SCH (21:44)
[2022-03-28] MEDS: THIAMINE HCL 100 MG TABLET (FP) PO SCH (21:44)
[2022-03-29] MEDS ORDERED: INSULIN (NOVOLOG) ASPART 100 UNITS/ML 10ML VIAL ONE (08:34)
[2022-03-29] MEDS: metFORMIN HCL 500 MG TABLET (FP) PO SCH ×2 (08:36→16:58)
[2022-03-29] MEDS: INSULIN SLIDING SCALE (NOVOLOG) 1 VIAL SQ SCH ×4 (08:36→21:36)
[2022-03-29] MEDS: amLODIPine BESYLATE 5 MG TABLET (FP) PO SCH (10:02)
[2022-03-29] MEDS: FERROUS SO4 325 MG TABLET (FP) PO SCH (10:02)
[2022-03-29] MEDS: PRENATAL VITAMINS W/ FOLIC ACID TABLET (FP) PO SCH (10:02)
[2022-03-29] MEDS: NICOTINE 14 MG/24 HOURS TOPICAL PATCH TD SCH (10:03)
[2022-03-29 11:10] LABS: CALCIUM 8.7 mg/dL (8.5-10.1)
[2022-03-29 11:13] LABS: BLOOD UREA NITROGEN 10.4 mg/dL (7-18)
[2022-03-29 11:14] LABS: CREATININE 0.8 mg/dL (0.55-1.3)
[2022-03-29] MEDS: MELATONIN 5 MG TABLETS PO SCH (21:39)
[2022-03-29] MEDS: INSULIN (LEVEMIR) 100 UNITS/ML UNITS SQ SCH (21:39)
[2022-03-29] MEDS: ATORVASTATIN CA 10 MG TABLET (FP) PO SCH (21:39)
[2022-03-29] MEDS: THIAMINE HCL 100 MG TABLET (FP) PO SCH (21:39)
[2022-03-30] MEDS: metFORMIN HCL 500 MG TABLET (FP) PO SCH ×2 (07:19→16:41)
[2022-03-30] MEDS ORDERED: INSULIN (NOVOLOG) ASPART 100 UNITS/ML 10ML VIAL ONE ×2 (07:22→16:11)
[2022-03-30] MEDS: INSULIN SLIDING SCALE (NOVOLOG) 1 VIAL SQ SCH ×4 (07:26→21:40)
[2022-03-30] MEDS: amLODIPine BESYLATE 5 MG TABLET (FP) PO SCH (09:50)
[2022-03-30] MEDS: FERROUS SO4 325 MG TABLET (FP) PO SCH (09:50)
[2022-03-30] MEDS: PRENATAL VITAMINS W/ FOLIC ACID TABLET (FP) PO SCH (09:50)
[2022-03-30] MEDS: NICOTINE 14 MG/24 HOURS TOPICAL PATCH TD SCH (09:51)
[2022-03-30] MEDS: THIAMINE HCL 100 MG TABLET (FP) PO SCH (21:38)
[2022-03-30] MEDS: INSULIN (LEVEMIR) 100 UNITS/ML UNITS SQ SCH (21:38)
[2022-03-30] MEDS: ATORVASTATIN CA 10 MG TABLET (FP) PO SCH (21:38)
[2022-03-30] MEDS: MELATONIN 5 MG TABLETS PO SCH (21:38)
[2022-03-31] MEDS: metFORMIN HCL 500 MG TABLET (FP) PO SCH ×2 (07:36→16:56)
[2022-03-31] MEDS: INSULIN SLIDING SCALE (NOVOLOG) 1 VIAL SQ SCH ×4 (07:37→21:30)
[2022-03-31] MEDS: PRENATAL VITAMINS W/ FOLIC ACID TABLET (FP) PO SCH (10:11)
[2022-03-31] MEDS: NICOTINE 14 MG/24 HOURS TOPICAL PATCH TD SCH (10:12)
[2022-03-31] MEDS: amLODIPine BESYLATE 5 MG TABLET (FP) PO SCH (10:12)
[2022-03-31] MEDS: FERROUS SO4 325 MG TABLET (FP) PO SCH (10:12)
[2022-03-31] MEDS ORDERED: INSULIN (NOVOLOG) ASPART 100 UNITS/ML 10ML VIAL ONE ×2 (16:56→20:14)
[2022-03-31] MEDS: THIAMINE HCL 100 MG TABLET (FP) PO SCH (21:25)
[2022-03-31] MEDS: ATORVASTATIN CA 10 MG TABLET (FP) PO SCH (21:25)
[2022-03-31] MEDS: MELATONIN 5 MG TABLETS PO SCH (21:25)
[2022-03-31] MEDS: INSULIN (LEVEMIR) 100 UNITS/ML UNITS SQ SCH (21:30)
[2022-04-01] MEDS: metFORMIN HCL 500 MG TABLET (FP) PO SCH (06:16)
[2022-04-01 07:14] VITALS: TEMP 97.1
[2022-04-01] MEDS: INSULIN SLIDING SCALE (NOVOLOG) 1 VIAL SQ SCH ×2 (07:39→12:08)
[2022-04-01] MEDS: PRENATAL VITAMINS W/ FOLIC ACID TABLET (FP) PO SCH (10:09)
[2022-04-01] MEDS: NICOTINE 14 MG/24 HOURS TOPICAL PATCH TD SCH (10:09)
[2022-04-01] MEDS: amLODIPine BESYLATE 5 MG TABLET (FP) PO SCH (10:09)
[2022-04-01] MEDS: FERROUS SO4 325 MG TABLET (FP) PO SCH (10:10)
[2022-04-01] MEDS ORDERED: INSULIN (NOVOLOG) ASPART 100 UNITS/ML 10ML VIAL ONE (14:18)
[2022-04-01 15:46] VITALS: BP 113/73; PULSE 85
== END 2022-04-01 14:45 | disposition home or self-care (01) | DRG 897 ==
LOC: YASAS 03:40 → Y5N 05:49
PROVIDERS: ADMIT Allergy & Immunology; ATTEND Psychiatry & Neurology Pain Medicine
PROC: HZ2ZZZZ Detoxification Services for Substance Abuse Treatment (ICD-10-PCS; principal; 2022-03-27)
DX: F10.230 Alcohol dependence with withdrawal, uncomplicated (principal); F17.210 Nicotine dependence, cigarettes, uncomplicated; D64.9 Anemia, unspecified; I10 Essential (primary) hypertension; E78.00 Pure hypercholesterolemia, unspecified; E11.9 Type 2 diabetes mellitus without complications; Z79.4 Long term (current) use of insulin; E66.9 Obesity, unspecified; Z68.38 Body mass index [BMI] 38.0-38.9, adult; Z91.14 Patient's other noncompliance with medication regimen; Z59.00 Homelessness unspecified; Z28.310 Unvaccinated for COVID-19; Z28.9 Immunization not carried out for unspecified reason
CPT/HCPCS: 36415; 80048; 82962; 86803

== ENCOUNTER 2022-10-13 20:14 | Inpatient (IN) | payer OTHER ==
[2022-10-13 21:16] VITALS: BMI 41.3
[2022-10-13] MEDS ORDERED: NALOXONE HCL (KLOXXADO) 8 MG SPRAY NS PRN (22:02)
[2022-10-13] MEDS ORDERED: LOPERAMIDE HCL 2 MG CAPSULE PO PRN (22:02)
[2022-10-13] MEDS ORDERED: BENZOCAINE/MENTHOL (CHLORASEPTIC ) LOZENGE MM PRN (22:02)
[2022-10-13] MEDS ORDERED: guaiFENesin 600 MG TABLET.ER (FP) PO PRN (22:02)
[2022-10-13] MEDS ORDERED: MAG HYDROX/AL HYDROX/SIMETH 30 ML UNIT-DOSE CUP PO PRN (22:02)
[2022-10-13] MEDS ORDERED: COLLOIDAL OATMEAL 1 BAR EACH TP PRN (22:02)
[2022-10-13] MEDS ORDERED: IBUPROFEN 600 MG TABLET (FP) PO PRN (22:02)
[2022-10-13] MEDS ORDERED: POLYETHYLENE GLYCOL (HEALTHYLAX) 3350 17 GM PACKET PO PRN (22:02)
[2022-10-13] MEDS ORDERED: NALOXONE HCL 0.4 MG/ML VIAL IM PRN (22:02)
[2022-10-13] MEDS ORDERED: AMMONIUM LACTATE 12% LOTION 225 GM BOTTLE TP PRN (22:02)
[2022-10-13] MEDS ORDERED: BENZONATATE 200 MG CAPSULE PO PRN (22:02)
[2022-10-13] MEDS ORDERED: hydrOXYzine PAMOATE 25 MG CAPSULE (FP) PO PRN (22:02)
[2022-10-13] MEDS ORDERED: NICOTINE POLACRILEX 2 MG GUM BUC PRN (22:02)
[2022-10-13] MEDS ORDERED: ACETAMINOPHEN 325 MG TABLET (FP) PO PRN (22:02)
[2022-10-13] MEDS ORDERED: IBUPROFEN 400 MG TABLET (FP) PO PRN (22:02)
[2022-10-14] MEDS: MELATONIN 5 MG TABLETS PO SCH ×2 (06:10→21:10)
[2022-10-14] MEDS: metFORMIN HCL 500 MG TABLET (FP) PO SCH ×2 (06:48→16:21)
[2022-10-14] MEDS: PRENATAL VITAMINS W/ FOLIC ACID TABLET (FP) PO SCH (10:15)
[2022-10-14] MEDS: amLODIPine BESYLATE 5 MG TABLET (FP) PO SCH (10:15)
[2022-10-14 10:17] LABS: EPI CELLS 2 /uL (0-25.1); HYALINE CASTS 7 /uL (0-3.1); PH,URINE 5.5 (5.0-8.0); URINE APPEARANCE CLEAR; URINE BACTERIA 103 /uL (0-1359); URINE BILIRUBIN NEGATIVE (NEGATIVE); URINE COLOR YELLOW; URINE GLUCOSE (UA) 3+ (NEGATIVE); URINE KETONE NEGATIVE (NEGATIVE); URINE LEUK ESTERASE 1+ (NEGATIVE); URINE NITRITE NEGATIVE (NEGATIVE); URINE PROTEIN NEGATIVE (NEGATIVE); URINE RBC 11 /uL (0-23.9); URINE UROBILINOGEN 0.2 mg/dL (0.2-1.0); URINE WBC 811 /uL (0-25.8)
[2022-10-14 10:18] LABS: YEAST NEGATIVE (NEGATIVE)
[2022-10-14 13:53] LABS: HEMATOCRIT 31.2 % (35.4-49); HEMOGLOBIN 10.4 GM/dL (11.7-16.9); MCH 30.9 pg (25.7-33.7); MCHC 33.2 g/dl (32.0-35.9); MEAN CELL VOLUME 92.9 fl (80-96); MEAN PLT VOLUME 9.6 fl (7.5-11.1); PLATELET COUNT 142 10^3/uL (134-434); RBC 3.36 M/mm3 (4.00-5.60); RDW 14.5 % (11.9-15.9); WHITE BLOOD COUNT 4.9 K/mm3 (4.0-10.0)
[2022-10-14 14:31] LABS: CHLORIDE 101 mmol/L (98-107); POTASSIUM 4.3 mmol/L (3.5-5.1); SODIUM 134 mmol/L (136-145)
[2022-10-14 14:33] LABS: ALBUMIN 3.2 g/dl (3.4-5.0); ANION GAP 4 MMOL/L (8-16); CALCIUM 8.3 mg/dL (8.5-10.1); CO2 29 mmol/L (21-32)
[2022-10-14 14:36] LABS: CREATININE 1.2 mg/dL (0.55-1.3); SGOT/AST 15 U/L (15-37)
[2022-10-14 14:37] LABS: SGPT/ALT 28 U/L (13-61)
[2022-10-14 14:38] LABS: BILIRUBIN,TOTAL 0.6 mg/dL (0.2-1); TOT PROT 6.8 g/dl (6.4-8.2)
[2022-10-14 14:39] LABS: ALK PHOS 96 U/L (45-117)
[2022-10-14 14:43] LABS: GLUCOSE,RANDOM 425 mg/dL (74-106)
[2022-10-14 15:18] LABS: SYPHILIS W/ RPR CONF NON-REACTIVE (NONREACTIVE)
[2022-10-14 15:35] LABS: HIV INTERPRETATION NEGATIVE (NEGATIVE)
[2022-10-14] MEDS: INSULIN SLIDING SCALE (NOVOLOG) 1 VIAL SQ SCH (16:21)
[2022-10-14] MEDS: THIAMINE HCL 100 MG TABLET (FP) PO SCH (21:10)
[2022-10-14] MEDS: ATORVASTATIN CA 10 MG TABLET (FP) PO SCH (21:10)
[2022-10-14] MEDS: INSULIN (LEVEMIR) 100 UNITS/ML UNITS SQ SCH (21:11)
[2022-10-15] MEDS: metFORMIN HCL 500 MG TABLET (FP) PO SCH ×2 (06:03→16:19)
[2022-10-15] MEDS: INSULIN SLIDING SCALE (NOVOLOG) 1 VIAL SQ SCH ×2 (06:05→16:20)
[2022-10-15] MEDS: PRENATAL VITAMINS W/ FOLIC ACID TABLET (FP) PO SCH (09:44)
[2022-10-15] MEDS: amLODIPine BESYLATE 5 MG TABLET (FP) PO SCH (09:44)
[2022-10-15] MEDS: FERROUS SO4 325 MG TABLET (FP) PO SCH (10:39)
[2022-10-15 14:00] LABS: URINE APPEARANCE CLEAR; URINE BILIRUBIN NEGATIVE (NEGATIVE); URINE COLOR YELLOW; URINE GLUCOSE (UA) 3+ (NEGATIVE); URINE KETONE NEGATIVE (NEGATIVE); URINE LEUK ESTERASE NEGATIVE (NEGATIVE); URINE NITRITE NEGATIVE (NEGATIVE); URINE PROTEIN NEGATIVE (NEGATIVE); URINE UROBILINOGEN 0.2 mg/dL (0.2-1.0)
[2022-10-15 14:16] LABS: EPI CELLS 1 /uL (0-25.1); HYALINE CASTS 0 /uL (0-3.1); URINE BACTERIA 21 /uL (0-1359); URINE RBC 2 /uL (0-23.9); URINE WBC 4 /uL (0-25.8)
[2022-10-15 14:30] LABS: YEAST NEGATIVE (NEGATIVE)
[2022-10-15] MEDS: THIAMINE HCL 100 MG TABLET (FP) PO SCH (21:26)
[2022-10-15] MEDS: INSULIN (LEVEMIR) 100 UNITS/ML UNITS SQ SCH (21:27)
[2022-10-15] MEDS: MELATONIN 5 MG TABLETS PO SCH (21:27)
[2022-10-15] MEDS: ATORVASTATIN CA 10 MG TABLET (FP) PO SCH (21:27)
[2022-10-16] MEDS: metFORMIN HCL 500 MG TABLET (FP) PO SCH ×2 (06:51→16:23)
[2022-10-16] MEDS: INSULIN SLIDING SCALE (NOVOLOG) 1 VIAL SQ SCH ×4 (06:52→21:09)
[2022-10-16] MEDS: amLODIPine BESYLATE 5 MG TABLET (FP) PO SCH (10:02)
[2022-10-16] MEDS: PRENATAL VITAMINS W/ FOLIC ACID TABLET (FP) PO SCH (10:02)
[2022-10-16] MEDS: FERROUS SO4 325 MG TABLET (FP) PO SCH (10:02)
[2022-10-16] MEDS ORDERED: INSULIN SLIDING SCALE (NOVOLOG) 1 VIAL SQ ONE (11:53)
[2022-10-16] MEDS: INSULIN (LEVEMIR) 100 UNITS/ML UNITS SQ SCH (21:09)
[2022-10-16] MEDS: MELATONIN 5 MG TABLETS PO SCH (21:09)
[2022-10-16] MEDS: ATORVASTATIN CA 10 MG TABLET (FP) PO SCH (21:09)
[2022-10-16] MEDS: THIAMINE HCL 100 MG TABLET (FP) PO SCH (21:09)
[2022-10-16] MEDS: MAGNESIUM HYDROX 2400MG/30ML ORAL SUSPENSION 30 ML CUP PO PRN (22:56)
[2022-10-16] MEDS ORDERED: ONDANSETRON *ODT* 4 MG TABLET SL PRN (23:03)
[2022-10-17] MEDS: metFORMIN HCL 500 MG TABLET (FP) PO SCH ×2 (06:13→16:21)
[2022-10-17] MEDS: INSULIN SLIDING SCALE (NOVOLOG) 1 VIAL SQ SCH ×4 (06:13→21:23)
[2022-10-17] MEDS: MAGNESIUM HYDROX 2400MG/30ML ORAL SUSPENSION 30 ML CUP PO PRN (06:16)
[2022-10-17] MEDS: amLODIPine BESYLATE 5 MG TABLET (FP) PO SCH (09:37)
[2022-10-17] MEDS: PRENATAL VITAMINS W/ FOLIC ACID TABLET (FP) PO SCH (09:37)
[2022-10-17] MEDS: FERROUS SO4 325 MG TABLET (FP) PO SCH (09:37)
[2022-10-17] MEDS ORDERED: INSULIN SLIDING SCALE (NOVOLOG) 1 VIAL SQ ONE (16:15)
[2022-10-17] MEDS: ATORVASTATIN CA 10 MG TABLET (FP) PO SCH (21:23)
[2022-10-17] MEDS: MELATONIN 5 MG TABLETS PO SCH (21:23)
[2022-10-17] MEDS: INSULIN (LEVEMIR) 100 UNITS/ML UNITS SQ SCH (21:23)
[2022-10-17] MEDS: THIAMINE HCL 100 MG TABLET (FP) PO SCH (21:23)
[2022-10-18] MEDS: INSULIN SLIDING SCALE (NOVOLOG) 1 VIAL SQ SCH ×4 (07:14→21:04)
[2022-10-18] MEDS: metFORMIN HCL 500 MG TABLET (FP) PO SCH ×2 (07:14→16:26)
[2022-10-18] MEDS: FERROUS SO4 325 MG TABLET (FP) PO SCH (09:47)
[2022-10-18] MEDS: PRENATAL VITAMINS W/ FOLIC ACID TABLET (FP) PO SCH (09:47)
[2022-10-18] MEDS: amLODIPine BESYLATE 5 MG TABLET (FP) PO SCH (09:47)
[2022-10-18] MEDS: MELATONIN 5 MG TABLETS PO SCH (21:03)
[2022-10-18] MEDS: THIAMINE HCL 100 MG TABLET (FP) PO SCH (21:04)
[2022-10-18] MEDS: ATORVASTATIN CA 10 MG TABLET (FP) PO SCH (21:04)
[2022-10-18] MEDS: INSULIN (LEVEMIR) 100 UNITS/ML UNITS SQ SCH (21:04)
[2022-10-19] MEDS: metFORMIN HCL 500 MG TABLET (FP) PO SCH ×2 (06:17→16:25)
[2022-10-19] MEDS: INSULIN SLIDING SCALE (NOVOLOG) 1 VIAL SQ SCH ×4 (06:17→21:31)
[2022-10-19] MEDS: PRENATAL VITAMINS W/ FOLIC ACID TABLET (FP) PO SCH (09:22)
[2022-10-19] MEDS: amLODIPine BESYLATE 5 MG TABLET (FP) PO SCH (09:22)
[2022-10-19] MEDS: FERROUS SO4 325 MG TABLET (FP) PO SCH (09:22)
[2022-10-19] MEDS ORDERED: INSULIN SLIDING SCALE (NOVOLOG) 1 VIAL SQ ONE (11:43)
[2022-10-19] MEDS: MELATONIN 5 MG TABLETS PO SCH (21:29)
[2022-10-19] MEDS: THIAMINE HCL 100 MG TABLET (FP) PO SCH (21:29)
[2022-10-19] MEDS: ATORVASTATIN CA 10 MG TABLET (FP) PO SCH (21:29)
[2022-10-19] MEDS: INSULIN (LEVEMIR) 100 UNITS/ML UNITS SQ SCH (21:31)
[2022-10-20] MEDS: metFORMIN HCL 500 MG TABLET (FP) PO SCH ×2 (06:28→16:27)
[2022-10-20] MEDS: INSULIN SLIDING SCALE (NOVOLOG) 1 VIAL SQ SCH ×4 (07:08→21:08)
[2022-10-20] MEDS: amLODIPine BESYLATE 5 MG TABLET (FP) PO SCH (09:32)
[2022-10-20] MEDS: PRENATAL VITAMINS W/ FOLIC ACID TABLET (FP) PO SCH (09:32)
[2022-10-20] MEDS: FERROUS SO4 325 MG TABLET (FP) PO SCH (09:32)
[2022-10-20] MEDS: THIAMINE HCL 100 MG TABLET (FP) PO SCH (21:05)
[2022-10-20] MEDS: ATORVASTATIN CA 10 MG TABLET (FP) PO SCH (21:06)
[2022-10-20] MEDS: MELATONIN 5 MG TABLETS PO SCH (21:06)
[2022-10-20] MEDS: INSULIN (LEVEMIR) 100 UNITS/ML UNITS SQ SCH (21:07)
[2022-10-21] MEDS: metFORMIN HCL 500 MG TABLET (FP) PO SCH ×2 (06:38→16:24)
[2022-10-21] MEDS: INSULIN SLIDING SCALE (NOVOLOG) 1 VIAL SQ SCH ×4 (06:40→21:28)
[2022-10-21 06:57] VITALS: TEMP 97.5
[2022-10-21] MEDS: PRENATAL VITAMINS W/ FOLIC ACID TABLET (FP) PO SCH (09:57)
[2022-10-21] MEDS: amLODIPine BESYLATE 5 MG TABLET (FP) PO SCH (09:57)
[2022-10-21] MEDS: FERROUS SO4 325 MG TABLET (FP) PO SCH (09:57)
[2022-10-21] MEDS: ATORVASTATIN CA 10 MG TABLET (FP) PO SCH (21:28)
[2022-10-21] MEDS: MELATONIN 5 MG TABLETS PO SCH (21:28)
[2022-10-21] MEDS: THIAMINE HCL 100 MG TABLET (FP) PO SCH (21:28)
[2022-10-21] MEDS: INSULIN (LEVEMIR) 100 UNITS/ML UNITS SQ SCH (21:28)
[2022-10-22] MEDS: metFORMIN HCL 500 MG TABLET (FP) PO SCH (06:17)
[2022-10-22] MEDS: INSULIN SLIDING SCALE (NOVOLOG) 1 VIAL SQ SCH (06:19)
[2022-10-22 06:45] VITALS: RESP 18
[2022-10-22 09:02] VITALS: BP 123/72; PULSE 77
[2022-10-22] MEDS: PRENATAL VITAMINS W/ FOLIC ACID TABLET (FP) PO SCH (09:43)
[2022-10-22] MEDS: amLODIPine BESYLATE 5 MG TABLET (FP) PO SCH (09:43)
[2022-10-22] MEDS: FERROUS SO4 325 MG TABLET (FP) PO SCH (09:43)
== END 2022-10-22 09:54 | disposition home or self-care (01) | DRG 895 ==
LOC: YASAS 20:14 → Y3W 10-14 03:38
PROVIDERS: ADMIT Allergy & Immunology; ATTEND Psychiatry & Neurology Pain Medicine
PROC: HZ42ZZZ Group Counseling for Substance Abuse Treatment, Cognitive-Behavioral (ICD-10-PCS; principal; 2022-10-14)
DX: F10.20 Alcohol dependence, uncomplicated (principal); Z68.41 Body mass index [BMI] 40.0-44.9, adult; F17.210 Nicotine dependence, cigarettes, uncomplicated; F10.282 Alcohol dependence with alcohol-induced sleep disorder; G47.00 Insomnia, unspecified; I10 Essential (primary) hypertension; E78.5 Hyperlipidemia, unspecified; E11.65 Type 2 diabetes mellitus with hyperglycemia; Z79.4 Long term (current) use of insulin; E66.01 Morbid (severe) obesity due to excess calories; D64.9 Anemia, unspecified; R19.5 Other fecal abnormalities; Z59.00 Homelessness unspecified
CPT/HCPCS: 36415; 80053; 81003; 82272; 82962; 85027; 86780; 86803; 87086; 87389; 87635; 93005; 93010; Q0162